=== PATIENT | male | born 1945 | race Caucasian/White ===

== ENCOUNTER 2017-07-16 20:00 | Emergency (ER) | payer MEDICARE, BC ==
[~2017-07-16] VITALS: Ht 167.6 cm; Wt 104.0 kg
[~2017-07-16 20:00] MED LIST: ACCU40TA PO; ACCU40TA10 PO; ALPR.5 PO; ASPI1TAB57 PO; HYDR-3366 PO; HYDR25TA5 PO; LABE100T2 PO; LOVA40TA PO; MULT-159 PO; OMEG12007 PO; PRED1SUS RIGHT EYE
[2017-07-16 20:09] VITALS: BP 140/63; PULSE 95; RESP 18; TEMP 100; O2SAT 94
--- NOTE | 2017-07-16 20:29 | PD ---
HPI Chief Complaint: Skin Problem Time Seen by Provider: 20:23 Travel History International Travel<30 days: No Contact w/Intl Traveler<30days: No Traveled to known affect area: No History of Present Illness HPI The patient is a 71-year-old male, [id number] diabetic, who is had a foot ulcer on his right foot for over 5 years. He states it healed up 3 months ago but in the last 3 days he has had redness, pain in the area and fever. He states he does not remember ever having osteomyelitis in that foot. His diabetes has been under fairly good control. PFSH Past Medical History Hx Anticoagulant Therapy: Yes (ASA 81 MG) Diabetes: Yes Diminished Hearing: No Hypertension: Yes Triglycerides - High: Yes Social History Alcohol Use: No Tobacco Use: No Substance Use: No Allergies-Medications (Allergen,Severity, Reaction): Coded Allergies: No Known Allergies (Unverified Adverse Reaction, Unknown, 07/16/17) Reported Meds & Prescriptions Reported Meds & Active Scripts Active Bactrim DS (Sulfamethoxazole-Trimethoprim) 800-160 Mg Tab 1 Tab PO BID Doxycycline Hyclate 100 Mg Cap 100 Mg PO BID Reported Pred Forte Opth 1% (Prednisolone Acetate Opth 1%) 1% Susp 1 Drop RIGHT EYE QID Accupril (Quinapril HCl) 40 Mg Tab 40 Mg PO DAILY Lovastatin 40 Mg Tab 40 Mg PO DAILY Labetalol (Labetalol HCl) 100 Mg Tab 100 Mg PO BID [place] (Hydrocodone-Acetaminophen) 10-325 Mg Tab 1 Tab PO DIRECTED PRN Hydrochlorothiazide 25 Mg Tab 25 Mg PO DAILY Aspirin 81 (Aspirin) 81 Mg Tabdr 81 Mg PO DAILY Xanax (Alprazolam) 0.5 Mg Tab 0.5 Mg PO DIRECTED PRN Review of Systems Except as stated in HPI: all other systems reviewed are Neg Physical Exam Narrative GENERAL: The patient is alert, oriented 3 and slight apparent distress with his right foot discomfort. His vital signs show temperature 100.0, pulse 95 and oximetry 94% but otherwise normal. SKIN: Focused skin assessment warm/dry. There is erythema involving the heel and up past the ankle medially. No red streak is noted. No fluctuance is noted. There is no evidence of abscess formation. No drainage is present from the heel. HEAD: Atraumatic. Normocephalic. EYES: Pupils equal and round. No scleral icterus. No injection or drainage. ENT: No nasal bleeding or discharge. Mucous membranes pink and moist. NECK: Trachea midline. No JVD. CARDIOVASCULAR: Regular rate and rhythm. No murmur appreciated. RESPIRATORY: No accessory muscle use. Clear to auscultation. Breath sounds equal bilaterally. GASTROINTESTINAL: Abdomen soft, non-tender, nondistended. Hepatic and splenic margins not palpable. MUSCULOSKELETAL: No obvious deformities. No clubbing. No cyanosis. No edema. NEUROLOGICAL: Awake and alert. No obvious cranial nerve deficits. Motor grossly within normal limits. Normal speech. PSYCHIATRIC: Appropriate mood and affect; insight and judgment normal. Data Data Last Documented VS Vital Signs Date Time Temp Pulse Resp B/P (MAP) Pulse Ox O2 Delivery O2 Flow Rate FiO2 07/16/17 20:09 100.0 95 18 140/63 (88) 94 Orders Orders Complete Blood Count With Diff (07/16/17 20:29) Comprehensive Metabolic Panel (07/16/17 20:29) Ct Foot W/O Contrast (07/16/17 ) Sulfamet-Trimeth Ds 800-160 Mg (Bactrim (07/16/17 22:30) Doxycycline (Vibramycin) (07/16/17 22:30) Labs Laboratory Tests Test 07/16/17 20:40 White Blood Count 11.2 TH/MM3 Red Blood Count 3.59 MIL/MM3 Hemoglobin 10.8 GM/DL Hematocrit 32.0 % Mean Corpuscular Volume 89.0 FL Mean Corpuscular Hemoglobin 30.1 PG Mean Corpuscular Hemoglobin Concent 33.8 % Red Cell Distribution Width 12.4 % Platelet Count 173 TH/MM3 Mean Platelet Volume 7.4 FL Neutrophils (%) (Auto) 87.8 % Lymphocytes (%) (Auto) 3.3 % Monocytes (%) (Auto) 8.2 % Eosinophils (%) (Auto) 0.1 % Basophils (%) (Auto) 0.6 % Neutrophils # (Auto) 9.8 TH/MM3 Lymphocytes # (Auto) 0.4 TH/MM3 Monocytes # (Auto) 0.9 TH/MM3 Eosinophils # (Auto) 0.0 TH/MM3 Basophils # (Auto) 0.1 TH/MM3 CBC Comment DIFF FINAL Differential Comment Blood Urea Nitrogen 66 MG/DL Creatinine 2.00 MG/DL Random Glucose 235 MG/DL Total Protein 7.1 GM/DL Albumin 3.3 GM/DL Calcium Level 8.7 MG/DL Alkaline Phosphatase 157 U/L Aspartate Amino Transf (AST/SGOT) 55 U/L Alanine Aminotransferase (ALT/SGPT) 64 U/L Total Bilirubin 0.6 MG/DL Sodium Level 134 MEQ/L Potassium Level 5.0 MEQ/L Chloride Level 102 MEQ/L Carbon Dioxide Level 22.2 MEQ/L Anion Gap 10 MEQ/L Estimat Glomerular Filtration Rate 33 ML/MIN MDM Medical Decision Making Medical Screen Exam Complete: Yes Emergency Medical Condition: Yes Medical Record Reviewed: Yes Interpretation(s) We could not use IV contrast on the CT of the foot because of the patient's renal insufficiency. Nevertheless, osteomyelitis is not identified on the CT. There is soft tissue swelling and chronic change including hypertrophic changes and well corticated cystic change noted. Also noted is surgical hardware in the hindfoot for fusion. The CBC shows a white count of 11,200 with a hemoglobin of 11 and hematocrit of 32 and 88% neutrophils. The complete metabolic profile shows a sodium of 134, BUN 66, creatinine 2.0 with glucose 235 , AST of 55 and alkaline phosphatase of 157 and albumen 3.3. Differential Diagnosis Cellulitis, osteomyelitis, abscess formation, lymphadenitis, infected ulcer Narrative Course The patient has an infected ulcer with cellulitis of the right foot. He will be given doxycycline and Bactrim DS. He needs to follow-up with the wound care clinic that he has been following up within the past. Additional Instructions: Follow-up with the wound care clinic this week. The antibiotics are both twice daily for 10 days. To improve circulation you should elevate the foot as much as possible above your heart. Med/Other Pt SpecificInfo: Prescription(s) given Scripts Sulfamethoxazole-Trimethoprim (Bactrim DS) 800-160 Mg Tab 1 TAB PO BID for Infection, #20 TAB 0 Refills Prov: Lan Horner MD 07/16/17 Doxycycline Hyclate (Doxycycline Hyclate) 100 Mg Cap 100 MG PO BID for Infection, #20 CAP 0 Refills Prov: Lan Horner MD 07/16/17 Disposition: 01 DISCHARGE HOME Condition: Stable Lan Horner MD Jul 16, 2017 20:28
[2017-07-16 21:00] LABS: CHLORIDE 102 MEQ/L (98-107); SODIUM (NA) 134 MEQ/L (136-145)
[2017-07-16 21:02] LABS: AUTOMATED NEUTROPHIL # 9.8 TH/MM3 (1.8-7.7); BASOPHIL # 0.1 TH/MM3 (0-0.2); BASOPHIL % 0.6 % (0.0-2.0); EOSINOPHIL % 0.1 % (0.0-4.0); LYMPH % 3.3 % (9.0-44.0); LYMPHOCYTE # 0.4 TH/MM3 (1.0-4.8); MEAN CORPUSCULAR HEMOGLOBIN 30.1 PG (27.0-34.0); MEAN CORPUSCULAR HGB CONC 33.8 % (32.0-36.0); MONO % 8.2 % (0.0-8.0); NEUT % 87.8 % (16.0-70.0); PLATELET COUNT 173 TH/MM3 (150-450); RED BLOOD COUNT 3.59 MIL/MM3 (4.50-5.90); RED CELL DISTRIBUTION WIDTH 12.4 % (11.6-17.2); WHITE BLOOD COUNT 11.2 TH/MM3 (4.0-11.0)
[2017-07-16 21:04] LABS: ANION GAP 10 MEQ/L (5-15); BICARBONATE 22.2 MEQ/L (21.0-32.0); BLOOD UREA NITROGEN 66 MG/DL (7-18)
[2017-07-16 21:05] LABS: HEMO FLAGS DIFF FINAL
[2017-07-16 21:07] LABS: ALT (GPT) 64 U/L (12-78); AST (GOT) 55 U/L (15-37); GLOMERULAR FILTRATION RATE 33 ML/MIN (>89)
[2017-07-16 21:09] LABS: TOTAL BILIRUBIN ADULT 0.6 MG/DL (0.2-1.0)
[2017-07-16 21:10] LABS: ALKALINE PHOSPHATASE 157 U/L (45-117)
--- NOTE | 2017-07-16 22:04 | RADRPT ---
EXAM DATE/TIME: 07/16/2017 21:19 [facility] COMPARISON: No previous studies available for comparison. INDICATIONS : Evaluate for osteomyelitis. Redness on heel of right foot. RADIATION DOSE: 6.13 CTDIvol (mGy) MEDICAL HISTORY : Hypertension. Diabetes mellitus type 2. SURGICAL HISTORY : Right ankle. ENCOUNTER: Initial ACUITY: 1 week PAIN SCALE: 2/10 LOCATION: Right calcaneus. TECHNIQUE: Volumetric scanning of the foot was performed. Using automated exposure control and adjustment of th e mA and/or kV according to patient size, radiation dose was kept as low as reasonably achievable to obtain optimal diagnostic quality images. DICOM format image data is available electronically for re view and comparison. FINDINGS: BONES: There are surgical screws seen through the hindfoot. There is also surgical clips for fusion at the h indfoot. These extend through the talus, calcaneus, navicular, and cuboid bones. There is cystic zamorano ge seen at the talus, calcaneus, distal fibula, distal tibia, cuneiform bones and the proximal aspect of the metatarsals. Much of this is well-corticated consistent with chronic change. Areas of acute b jamison destruction are not clearly identified on this CT examination. There is a chronic bony density se en inferior to the navicular bone likely related to hypertrophic change measuring 1.7 cm. There is hy pertrophic change seen throughout the hindfoot. JOINTS: There is narrowing of the subtalar joint talonavicular joint and calcaneocuboid joints which could fuller ggest some degree of soft tissue fusion. Bony bridging is not clearly seen. SOFT TISSUES: There is soft tissue swelling seen throughout the mid and hindfoot. This appears most prominent at th e medial mid foot. There is an area of ulceration at the posterior aspect of the heel with air in the soft tissues in the heel fat-pad. Vascular calcifications are seen. CONCLUSION: 1. Status post placement of surgical hardware in the hindfoot for fusion. 2. There is chronic change including hypertrophic changes and well-corticated cystic change. An area of acute bone destruction or periosteal reaction is not fully seen. 3. Soft tissue swelling. 4. Ulcer at the heel fat-pad. Elmer Tidwell MD on July 16, 2017 at 21:54 Board Certified Radiologist. This report was verified electronically.
[2017-07-16] MEDS ORDERED: BACT800T5 PO (22:28)
[2017-07-16] MEDS ORDERED: DOXY100C PO (22:28)
[2017-07-16] MEDS ORDERED: SULFAMETHOXAZOLE-TRIMETHOPRIM DS 800-160 MG TAB PO ONE (22:30)
[2017-07-16] MEDS ORDERED: DOXYCYCLINE HYCLATE 100 MG CAP PO ONE (22:30)
[2017-07-16 22:51] VITALS: BP 142/60; PULSE 78; RESP 18; O2SAT 97
== END 2017-07-16 22:54 | disposition home or self-care (01) ==
LOC: PHED 20:00
DX: L03.115 Cellulitis of right lower limb (principal); E11.8 Type 2 diabetes mellitus with unspecified complications; I10 Essential (primary) hypertension; Z79.01 Long term (current) use of anticoagulants
CPT/HCPCS: 73700; 80053; 85025; 99285

== ENCOUNTER 2017-08-23 09:03 | Inpatient (IN) | payer MEDICARE, BC ==
[~2017-08-23] VITALS: Ht 170.2 cm; Wt 103.5 kg
[2017-08-23] VITALS (9 sets, daily range): BP systolic 99–117; BP diastolic 49–56; PULSE 65–72; RESP 14–20; TEMP 96.8–98.7; O2SAT 18–99
[~2017-08-23 09:03] MED LIST changes: -ACCU40TA10 PO; +HYDR-3516 PO; -MULT-159 PO; -OMEG12007 PO; +WHEELCHAIR CUSH1 MI1; +WHEEMIS3
[2017-08-23] MEDS ORDERED: VANCOMYCIN INJ 1,000 MG in SODIUM CHLOR 0.9% 250 ML INJ 250 ML IV STA (10:19)
[2017-08-23] MEDS ORDERED: PIPERACIL-TAZO 4.5 GM PREMIX 100 ML IV STA (10:19)
--- NOTE | 2017-08-23 10:24 | PD ---
HPI Chief Complaint: Skin Problem Time Seen by Provider: 10:19 Travel History International Travel<30 days: No Contact w/Intl Traveler<30days: No Traveled to known affect area: No History of Present Illness HPI 71-year-old male patient with history of diabetes, poorly controlled, with chronic right foot wounds for which she has been following up with wound care Dr. Sparks, and recently had been on courses of 2 antibiotics for chronic foot ulcers which are appearing worse, and he is sent in by Dr. Sparks today for further treatment. He denies any recent fevers or any other issues. His states that the foot wounds are getting larger and draining fluid. Modifying Factors: None Associated Signs & Symptoms: Worsening right foot wound Risk Factors: Diabetic, chronic foot wound, failed outpatient therapy PFSH Past Medical History Hx Anticoagulant Therapy: Yes (ASA 81 MG) Diabetes: Yes Diminished Hearing: No Hypertension: Yes Immunizations Current: Yes Triglycerides - High: Yes Past Surgical History Other Surgery: Yes Social History Alcohol Use: No Tobacco Use: No Substance Use: No Allergies-Medications (Allergen,Severity, Reaction): Coded Allergies: succinylcholine (Verified Allergy, Unknown, 08/23/17) No Known Allergies (Unverified Adverse Reaction, Unknown, 08/23/17) Reported Meds & Prescriptions Reported Meds & Active Scripts Active Hydrocodone-Acetaminophen 5-325 mg Tab 1 Tab PO Q6H PRN Wheelchair Cushion (Device) 1 Mis Mis Ea .ROUTE DIRECTED Wheelchair (Device) 1 Mis Mis Ea .ROUTE DIRECTED Reported Fish Oil 1200 mg ([place]-3 Fatty Acids) 360 Mg-1,200 Mg Cap Multiple Vitamins (Multiple Vitamin) 1 Tab Tab Fluoxetine (Fluoxetine HCl) 10 Mg Tab 10 Mg PO DAILY Pred Forte Opth 1% (Prednisolone Acetate Opth 1%) 1% Susp 1 Drop RIGHT EYE QID Accupril (Quinapril HCl) 40 Mg Tab 40 Mg PO DAILY Lovastatin 40 Mg Tab 40 Mg PO DAILY Labetalol (Labetalol HCl) 100 Mg Tab 100 Mg PO BID [place] (Hydrocodone-Acetaminophen) 10-325 Mg Tab 1 Tab PO DIRECTED PRN Hydrochlorothiazide 25 Mg Tab 25 Mg PO DAILY Aspirin 81 (Aspirin) 81 Mg Tabdr 81 Mg PO DAILY Xanax (Alprazolam) 0.5 Mg Tab 0.5 Mg PO DIRECTED PRN Review of Systems Except as stated in HPI: all other systems reviewed are Neg Physical Exam Narrative GENERAL: Well-developed elderly white male patient currently in mild distress. Awake and oriented 3. SKIN: Focused skin assessment warm/dry. HEAD: Atraumatic. Normocephalic. EYES: Pupils equal and round. No scleral icterus. No injection or drainage. ENT: No nasal bleeding or discharge. Mucous membranes pink and moist. NECK: Trachea midline. No JVD. CARDIOVASCULAR: Regular rate and rhythm. No murmur appreciated. RESPIRATORY: No accessory muscle use. Clear to auscultation. Breath sounds equal bilaterally. GASTROINTESTINAL: Abdomen soft, non-tender, nondistended. Hepatic and splenic margins not palpable. MUSCULOSKELETAL: No obvious deformities. No clubbing. No cyanosis. There is significant pitting edema especially in the right leg. There is a 4 cm necrotic right heel ulcer posteriorly. There is a 1 cm heel dorsum ulcer with black eschar. NEUROLOGICAL: Awake and alert. No obvious cranial nerve deficits. Motor grossly within normal limits. Normal speech. PSYCHIATRIC: Appropriate mood and affect; insight and judgment normal. Data Data Last Documented VS Vital Signs Date Time Temp Pulse Resp B/P (MAP) Pulse Ox O2 Delivery O2 Flow Rate FiO2 08/23/17 11:01 69 16 117/56 (76) 99 Room Air 08/23/17 09:06 96.8 Orders Orders Sepsis Workup Initiated (08/23/17 ) Complete Blood Count With Diff (08/23/17 10:19) Comprehensive Metabolic Panel (08/23/17 10:19) Lactic Acid Sepsis Protocol (08/23/17 10:19) Blood Culture (08/23/17 10:19) Blood Glucose (08/23/17 10:19) Ecg Monitoring (08/23/17 10:19) Iv Access Insert/Monitor (08/23/17 10:19) Oximetry (08/23/17 10:19) Oxygen Administration (08/23/17 10:19) Piperacil-Tazo 4.5 Gm Premix (Zosyn 4.5 (08/23/17 10:19) Vancomycin Inj (Vancomycin Inj) (08/23/17 10:19) Foot, Limited (2vws) (08/23/17 10:19) Ondansetron Inj (Zofran Inj) (08/23/17 11:15) Morphine Inj (Morphine Inj) (08/23/17 12:00) Admit Order (Ed Use Only) (08/23/17 12:02) Labs Laboratory Tests Test 08/23/17 10:45 White Blood Count 20.4 TH/MM3 Red Blood Count 3.40 MIL/MM3 Hemoglobin 9.8 GM/DL Hematocrit 31.0 % Mean Corpuscular Volume 91.2 FL Mean Corpuscular Hemoglobin 28.9 PG Mean Corpuscular Hemoglobin Concent 31.7 % Red Cell Distribution Width 15.1 % Platelet Count 181 TH/MM3 Mean Platelet Volume 7.3 FL Neutrophils (%) (Auto) 96.3 % Lymphocytes (%) (Auto) 1.4 % Monocytes (%) (Auto) 2.0 % Eosinophils (%) (Auto) 0.1 % Basophils (%) (Auto) 0.2 % Neutrophils # (Auto) 19.7 TH/MM3 Lymphocytes # (Auto) 0.3 TH/MM3 Monocytes # (Auto) 0.4 TH/MM3 Eosinophils # (Auto) 0.0 TH/MM3 Basophils # (Auto) 0.0 TH/MM3 CBC Comment DIFF FINAL Differential Comment Blood Urea Nitrogen 128 MG/DL Creatinine 4.35 MG/DL Random Glucose 381 MG/DL Total Protein 7.6 GM/DL Albumin 2.4 GM/DL Calcium Level 8.7 MG/DL Alkaline Phosphatase 503 U/L Aspartate Amino Transf (AST/SGOT) 52 U/L Alanine Aminotransferase (ALT/SGPT) 73 U/L Total Bilirubin 0.6 MG/DL Sodium Level 127 MEQ/L Potassium Level 5.8 MEQ/L Chloride Level 98 MEQ/L Carbon Dioxide Level 13.3 MEQ/L Anion Gap 16 MEQ/L Estimat Glomerular Filtration Rate 14 ML/MIN Lactic Acid Level 1.5 mmol/L [facility] Medical Decision Making Medical Screen Exam Complete: Yes Emergency Medical Condition: Yes Medical Record Reviewed: Yes Interpretation(s) Laboratory Tests Test 08/23/17 10:45 White Blood Count 20.4 TH/MM3 (4.0-11.0) Red Blood Count 3.40 MIL/MM3 (4.50-5.90) Hemoglobin 9.8 GM/DL (13.0-17.0) Hematocrit 31.0 % (39.0-51.0) Mean Corpuscular Hemoglobin Concent 31.7 % (32.0-36.0) Neutrophils (%) (Auto) 96.3 % (16.0-70.0) Lymphocytes (%) (Auto) 1.4 % (9.0-44.0) Neutrophils # (Auto) 19.7 TH/MM3 (1.8-7.7) Lymphocytes # (Auto) 0.3 TH/MM3 (1.0-4.8) Blood Urea Nitrogen 128 MG/DL (7-18) Creatinine 4.35 MG/DL (0.60-1.30) Random Glucose 381 MG/DL (74-106) Albumin 2.4 GM/DL (3.4-5.0) Alkaline Phosphatase 503 U/L (45-117) Aspartate Amino Transf (AST/SGOT) 52 U/L (15-37) Sodium Level 127 MEQ/L (136-145) Potassium Level 5.8 MEQ/L (3.5-5.1) Carbon Dioxide Level 13.3 MEQ/L (21.0-32.0) Anion Gap 16 MEQ/L (5-15) Estimat Glomerular Filtration Rate 14 ML/MIN (>89) Differential Diagnosis Chronic foot ulcers versus osteomyelitis versus cellulitis Narrative Course Lab work shows significant leukocytosis. IV vancomycin and Zosyn was given up after blood cultures were drawn. Metabolic panel shows significant renal insufficiency as well as hyponatremia which could be secondary to pseudohyponatremia as well since his blood sugars are elevated. Patient will need treatment for his foot as well as poorly controlled diabetes. Case is discussed with family practice resident service for admission. Cases discussed with Dr. Sun who took a look at the x-ray which shows air within the soft tissues concerning for osteomyelitis. He states that the patient will need to go to the OR today. Keep n.p.o. Diagnosis Primary Impression: Diabetic foot ulcer Additional Impression: Osteomyelitis of right foot Admitting Information Admitting Physician Requests: it Lv Alonzo MD Aug 23, 2017 10:23
[2017-08-23 11:04] LABS: AUTOMATED NEUTROPHIL # 19.7 TH/MM3 (1.8-7.7); BASOPHIL % 0.2 % (0.0-2.0); EOSINOPHIL % 0.1 % (0.0-4.0); HEMOGLOBIN 9.8 GM/DL (13.0-17.0); LYMPH % 1.4 % (9.0-44.0); LYMPHOCYTE # 0.3 TH/MM3 (1.0-4.8); MEAN CELL VOLUME 91.2 FL (80.0-100.0); MEAN CORPUSCULAR HEMOGLOBIN 28.9 PG (27.0-34.0); MEAN CORPUSCULAR HGB CONC 31.7 % (32.0-36.0); MEAN PLATELET VOLUME 7.3 FL (7.0-11.0); MONOCYTE # 0.4 TH/MM3 (0-0.9); NEUT % 96.3 % (16.0-70.0); PLATELET COUNT 181 TH/MM3 (150-450); RED CELL DISTRIBUTION WIDTH 15.1 % (11.6-17.2); WHITE BLOOD COUNT 20.4 TH/MM3 (4.0-11.0)
[2017-08-23] MEDS ORDERED: ONDANSETRON HCL 4 MG/2 ML VIAL IV PUSH ONE (11:15)
[2017-08-23 11:19] LABS: ALBUMIN 2.4 GM/DL (3.4-5.0); AST (GOT) 52 U/L (15-37); BICARBONATE 13.3 MEQ/L (21.0-32.0); BLOOD UREA NITROGEN 128 MG/DL (7-18); CALCIUM 8.7 MG/DL (8.5-10.1); CHLORIDE 98 MEQ/L (98-107); CREATININE 4.35 MG/DL (0.60-1.30); GLOMERULAR FILTRATION RATE 14 ML/MIN (>89); GLUCOSE,RANDOM 381 MG/DL (74-106); SODIUM (NA) 127 MEQ/L (136-145)
[2017-08-23 11:20] LABS: ALT (GPT) 73 U/L (12-78)
[2017-08-23 11:22] LABS: ALKALINE PHOSPHATASE 503 U/L (45-117); TOTAL BILIRUBIN ADULT 0.6 MG/DL (0.2-1.0); TOTAL PROTEIN 7.6 GM/DL (6.4-8.2)
[2017-08-23] MEDS ORDERED: MORPHINE SULFATE 2 MG/ML INJ IV PUSH ONE (12:00)
[2017-08-23] MEDS ORDERED: PROPOFOL 200 MG/20 ML AMP IV ONE (12:00)
[2017-08-23] MEDS ORDERED: PHENYLEPH/NS 1000 MCG/10 ML SYR IV ONE (12:00)
[2017-08-23] MEDS ORDERED: ONDANSETRON HCL 4 MG/2 ML VIAL IV ONE (12:00)
[2017-08-23] MEDS ORDERED: LACTATED RINGER'S 1000 ML INJ 1,000 ML IV ONE (12:00)
[2017-08-23] MEDS ORDERED: ROCURONIUM INJ 50 MG/5 ML SYRINGE IV PUSH ONE (12:00)
[2017-08-23] MEDS ORDERED: LIDOCAINE HCL 1% PF 5 ML SYRINGE OTHER ONE (12:00)
[2017-08-23] MEDS ORDERED: STERILE WATER FOR INJECTION 20 ML VIAL IV ONE (12:00)
[2017-08-23] MEDS ORDERED: ePHEDrine/NS 25 MG/5 ML SYRINGE IV ONE (12:00)
[2017-08-23] MEDS ORDERED: SODIUM CHLORIDE 0.9% 20 ML VIAL IV ONE (12:00)
--- NOTE | 2017-08-23 12:17 | RADRPT ---
EXAM DATE/TIME: 08/23/2017 11:34 [facility] COMPARISON: No previous studies available for comparison. INDICATIONS : ulcer on plantar surface of right foot. MEDICAL HISTORY : diabetic SURGICAL HISTORY : right foot surgery ENCOUNTER: Initial ACUITY: 1 week PAIN SCORE: 0/10 LOCATION: Right foot FINDINGS: Two view right foot demonstrate there has been previous extensive surgery to the hind foot including a [place] thread screw across the calcaneus. The talus may be surgically removed. There is extensive air both within the subcutaneous tissues around the ankle concerning for infection. There is marked dorsal soft tissue swelling. CONCLUSION: Concerning soft tissue air and swelling around the deformed ankle, possible osteomyelitis. Trever Deutsch MD on August 23, 2017 at 11:44 Board Certified Radiologist. This report was verified electronically.
[2017-08-23] MEDS ORDERED: MULTTAB12 (12:39)
[2017-08-23] MEDS ORDERED: FISH1200 (12:39)
[2017-08-23] MEDS ORDERED: FLUO10TA PO (12:39)
[2017-08-23] MEDS ORDERED: SODIUM CHLORIDE 0.9% FLUSH 10 ML FLUSH IV FLUSH PRN ×2 (13:00→16:45)
--- NOTE | 2017-08-23 13:46 | HHI.HP ---
[facility] Service Family Medicine Primary Care Physician Migue Jeter M.D. Admission Diagnosis right foot diabetic ulcer/failed outpatient therapy/sepsis Diagnoses: International Travel<30 Days: No Contact w/Intl Traveler<30days: No Known Affected Area: No History of Present Illness Patient is a 71-year-old male with a past medical history of poorly controlled diabetes with chronic foot ulcers, hypertension, chronic kidney disease, and hyperlipidemia that presents to the [place] ED with a chief complaint of a worsened foot ulcer. He has been following up at the wound care clinic with Dr. Sparks who has been managing his ulcers. Patient states that he had an ulcer on his right foot that healed and then " blew up." He went to the ED on July 15 and was given 2 antibiotics which he completed. The ulcer was doing better until last Monday when he found a blister and then it started hurting again. Today, he went to see Dr. Sparks who asked him to come to the ED. Dr. Sparks also found another abscess underneath his foot. For the last couple of days, he has not been able to eat all keep anything down. He has also been very weak. (Mary Lou Zhu MD R2) Review of Systems Constitutional: COMPLAINS OF: Fatigue, DENIES: Fever, Chills, Dizziness Eyes: DENIES: Blurred vision, Eye pain Ears, nose, mouth, throat: DENIES: Hearing loss, Nasal discharge, Throat pain, Ear Pain Respiratory: DENIES: Cough Cardiovascular: DENIES: Chest pain Gastrointestinal: COMPLAINS OF: Nausea, Vomiting, DENIES: Abdominal pain, Constipation, Diarrhea (last bm 2 days ago) Genitourinary: DENIES: Dysuria Musculoskeletal: DENIES: Back pain, Neck pain Integumentary: DENIES: Pruritus, Rash Neurologic: DENIES: Headache Psychiatric: COMPLAINS OF: Depression, DENIES: Confusion, Suicidal Ideation, Homicidal Ideation (Mary Lou Zhu MD R2) Past Family Social History Past Medical History Diabetes type 2, he is not currently on any diabetic medications Hypertension Hyperlipidemia Chronic kidney disease Anxiety/depression Past Surgical History Right corneal transplant Reported Medications Reported Meds & Active Scripts Active Hydrocodone-Acetaminophen 5-325 mg Tab 1 Tab PO Q6H PRN Wheelchair Cushion (Device) 1 Mis Mis Ea .ROUTE DIRECTED Wheelchair (Device) 1 Mis Mis Ea .ROUTE DIRECTED Reported Fish Oil 1200 mg ([place]-3 Fatty Acids) 360 Mg-1,200 Mg Cap Multiple Vitamins (Multiple Vitamin) 1 Tab Tab Fluoxetine (Fluoxetine HCl) 10 Mg Tab 10 Mg PO DAILY Pred Forte Opth 1% (Prednisolone Acetate Opth 1%) 1% Susp 1 Drop RIGHT EYE QID Lovastatin 40 Mg Tab 40 Mg PO DAILY Labetalol (Labetalol HCl) 100 Mg Tab 100 Mg PO BID [place] (Hydrocodone-Acetaminophen) 10-325 Mg Tab 1 Tab PO DIRECTED PRN Hydrochlorothiazide 25 Mg Tab 25 Mg PO DAILY Xanax (Alprazolam) 0.5 Mg Tab 0.5 Mg PO DIRECTED PRN (Mary Lou Zhu MD R2) Allergies: Coded Allergies: succinylcholine (Verified Allergy, Unknown, 08/23/17) No Known Allergies (Unverified Adverse Reaction, Unknown, 08/23/17) Family History Family member had an DE Social History Does not drink, smoke or use illicit drugs. Last smoked 40 years ago. Lives with ex- (Mary Lou Zhu MD R2) Physical Exam Vital Signs Vital Signs Date Time Temp Pulse Resp B/P (MAP) Pulse Ox O2 Delivery O2 Flow Rate FiO2 08/23/17 13:12 97 21 08/23/17 13:01 71 19 104/51 (68) 99 Room Air 08/23/17 11:01 69 16 117/56 (76) 99 Room Air 08/23/17 11:01 99 Room Air 08/23/17 10:21 18 08/23/17 09:06 96.8 65 14 105/52 (69) 99 Physical Exam GENERAL: This is a well-developed patient, obese patient in no apparent distress. SKIN: No rashes, ecchymoses or lesions. Cool and dry. No sacral ulcers. Other skin findings described in MSK exam below HEAD: Atraumatic. Normocephalic. No temporal or scalp tenderness. EYES: Pupils equal round and reactive. Extraocular motions intact. No scleral icterus. No injection or drainage. ENT: Nose without bleeding, purulent drainage or septal hematoma. Throat without erythema, tonsillar hypertrophy or exudate. Uvula midline. Airway patent. Upper dentures present NECK: Trachea midline. No JVD or lymphadenopathy. Supple, nontender, no meningeal signs. CARDIOVASCULAR: Regular rate and rhythm without murmurs, gallops, or rubs. RESPIRATORY: Clear to auscultation. Breath sounds equal bilaterally. No wheezes , rales, or rhonchi. GASTROINTESTINAL: Abdomen soft, non-tender, nondistended. No hepato-splenomegaly , or palpable masses. No guarding. MUSCULOSKELETAL: Decreased sensation in both feet and legs bilaterally. RIGHT FOOT: Palpable DP pulse on the left but not on the right. Right foot larger than left due to swelling, erythema, ankle appears deformed. 7 cm square gangrenous lesion on the right heel draining foul-smelling fluid. Second smaller plantar ulcer on the plantar surface of the right foot. Surrounding swelling and erythema, deformed appearing ankle due to swelling. Venous stasis dermatitis bilaterally. Brawny edema of right foot. Dry skin on feet bilaterally. Disfigured first two toenails bilaterally. LEFT FOOT: Stage I skin breakdown on heel of the left foot. Callus on big toe of left foot. NEUROLOGICAL: Awake and alert. Cranial nerves II through XII intact. Normal speech. Laboratory Laboratory Tests Test 08/23/17 10:45 White Blood Count 20.4 Red Blood Count 3.40 Hemoglobin 9.8 Hematocrit 31.0 Mean Corpuscular Volume 91.2 Mean Corpuscular Hemoglobin 28.9 Mean Corpuscular Hemoglobin Concent 31.7 Red Cell Distribution Width 15.1 Platelet Count 181 Mean Platelet Volume 7.3 Neutrophils (%) (Auto) 96.3 Lymphocytes (%) (Auto) 1.4 Monocytes (%) (Auto) 2.0 Eosinophils (%) (Auto) 0.1 Basophils (%) (Auto) 0.2 Neutrophils # (Auto) 19.7 Lymphocytes # (Auto) 0.3 Monocytes # (Auto) 0.4 Eosinophils # (Auto) 0.0 Basophils # (Auto) 0.0 CBC Comment DIFF FINAL Differential Comment Blood Urea Nitrogen 128 Creatinine 4.35 Random Glucose 381 Total Protein 7.6 Albumin 2.4 Calcium Level 8.7 Alkaline Phosphatase 503 Aspartate Amino Transf (AST/SGOT) 52 Alanine Aminotransferase (ALT/SGPT) 73 Total Bilirubin 0.6 Sodium Level 127 Potassium Level 5.8 Chloride Level 98 Carbon Dioxide Level 13.3 Anion Gap 16 Estimat Glomerular Filtration Rate 14 Lactic Acid Level 1.5 Date/Time Source Procedure Growth Status 08/23/17 10:45 Blood Peripheral Aerobic Blood Culture Pending Received 08/23/17 10:45 Blood Peripheral Anaerobic Blood Culture Pending Received (Mary Lou Zhu MD R2) Result Diagram: 08/23/17 1045 08/23/17 1045 Imaging Last Impressions Foot X-Ray 08/23/17 1019 Signed Impressions: Service Date/Time: Wednesday, August 23, 2017 11:34 - CONCLUSION: Concerning soft tissue air and swelling around the deformed ankle, possible osteomyelitis. Trever Deutsch MD Course In the ED, a sepsis workup was initiated. Patient received one dose of Zosyn 4.5 g IV and vancomycin IV. Foot x-ray was performed that was concerning for osteomyelitis. Podiatry was consulted who decided to take the patient to the OR for emergent incision and drainage. (Mary Lou Zhu MD R2) Caprini VTE Risk Assessment Caprini VTE Risk Assessment: Mod/High Risk (score >= 2) VTE Pharm Contraindication: High risk for bleeding Caprini Risk Assessment Model Point Value = 1 Point Value = 2 Point Value = 3 Point Value = 5 Age 41-60 Minor surgery BMI > 25 kg/m2 Swollen legs Varicose veins or History of unexplained or recurrent spontaneous Oral contraceptives or hormone replacement Sepsis (< 1 month) Serious lung disease, including pneumonia (< 1 month) Abnormal pulmonary function Acute myocardial infarction Congestive heart failure (< 1 month) History of inflammatory bowel disease Medical patient at bed rest Age 61-74 Arthroscopic surgery Major open surgery (> 45 min) Laparoscopic surgery (> 45 min) Malignancy Confined to bed (> 72 hours) Immobilizing plaster cast Central venous access Age >= 75 History of VTE Family history of VTE Factor V Leiden Prothrombin [id number] Lupus anticoagulant Anticardiolipin antibodies Elevated serum homocysteine Heparin-induced thrombocytopenia Other congenital or acquired thrombophilia Stroke (< 1 month) Elective arthroplasty Hip, pelvis, or leg fracture Acute spinal cord injury (< 1 month) Prophylaxis Regimen Total Risk Factor Score Risk Level Prophylaxis Regimen 0-1 Low Early ambulation 2 Moderate Order ONE of the following: *Sequential Compression Device (SCD) *Heparin 5000 units SQ BID 3-4 Higher Order ONE of the following medications: *Heparin 5000 units SQ TID *Enoxaparin/Lovenox 40 mg SQ daily (WT < 150 kg, CrCl > 30 mL/min) *Enoxaparin/Lovenox 30 mg SQ daily (WT < 150 kg, CrCl > 10-29 mL/min) *Enoxaparin/Lovenox 30 mg SQ BID (WT < 150 kg, CrCl > 30 mL/min) AND/OR *Sequential Compression Device (SCD) 5 or more Highest Order ONE of the following medications: *Heparin 5000 units SQ TID (Preferred with Epidurals) *Enoxaparin/Lovenox 40 mg SQ daily (WT < 150 kg, CrCl > 30 mL/min) *Enoxaparin/Lovenox 30 mg SQ daily (WT < 150 kg, CrCl > 10-29 mL/min) *Enoxaparin/Lovenox 30 mg SQ BID (WT < 150 kg, CrCl > 30 mL/min) AND *Sequential Compression Device (SCD) (Mary Lou Zhu MD R2) Assessment and Plan Assessment and Plan 71 year old male with past medical history of poorly controlled diabetes presents with severe sepsis from an infected diabetic foot ulcer which is concerning for necrotizing infection and osteomyelitis. He will be admitted for surgical management of the foot ulcer and treatment with fluids and antibiotics for severe sepsis. Podiatry has been consulted and patient is scheduled for the OR for incision and drainage today 08/23/17. Code Status Full code Discussed Condition With Will discuss with Dr. Frye (Mary Lou Zhu MD R2) Attending Attestation The patient has been seen and examined. The chart and all resident notes have been reviewed. I agree that inpatient care is appropriate and that a two midnight stay is expected for the reasons documented in the resident history and physical. I have discussed this with the resident and certify the resident s order for inpatient admission. Patient seen and examined with the resident team at 8 am today. Case reviewed and discussed Please refer to resident H&P for further details regarding HPI, ROS, PMH, SurgHx , FH and SocHx. In summary, patient is a 71yoM with a chronic foot wound He had been well known to podiatry and Dr. Sparks in the wound clinic Patient was sent to the ED after notable worsening in the foot He was admitted yesterday and taken to the OR by podiatry with subsequent admission to the ICU Patient had declined amputation at that time despite medical recommendations and discussion regarding the risk of not pursuing amputation. This am, he is seen in the ICU, ex- at the bedside. Patient and the medical team had a very lengthy discussion regarding amputation and the risk if patient did not choose to go this route. He repeated this information back to us with his ex- present and understood. GENERAL: Elderly male resting in bed SKIN: Warm and dry. Mild pallor. No rashes HEAD: Normocephalic. AT EYES: No scleral icterus. No injection or drainage. ENT: OP clear. MM slightly dry. NC in place NECK: Supple, trachea midline. No JVD or lymphadenopathy. CARDIOVASCULAR: Regular rate and rhythm without audible murmurs, gallops, or rubs. RESPIRATORY: Breath sounds equal and clear bilaterally. No accessory muscle use. GASTROINTESTINAL: Abdomen soft, non-tender, nondistended. Hypoactive BS. No rebound, no guarding. MUSCULOSKELETAL: No cyanosis. R LE in dressing post-op. Able to wiggle toes. NV intact distal to site. BACK: Nontender without obvious deformity. No CVA tenderness. NEURO: Awake and alert. CN grossly intact. Oriented. A/P: 71yoM admitted with: Severe sepsis due to OM, gas gangrene/necrotizing fascitis R foot (POA) DM, poorly controlled Hypertension Hyperlipidemia Chronic kidney disease, with acute renal dysfunction Anxiety/depression Empiric antibiotic therapy Critical care medicine is consulted Infectious disease has been consulted Podiatry has been consulted Vascular surgery has been consulted Patient on insulin gtt Pain control Palliative care consult to assist with determination of patient's goals Monitor VS closely Patient extensively counseled regarding risks/benefits. He and his ex- stated their understanding. At this point in time, patient desires to wait on surgery and think about it more. Patient seen and examined. Case reviewed and discussed Agree with plan of care as discussed with me and documented in the resident note. (Tiffanie Frye MD) Problem List: (1) Severe sepsis ICD Codes: A41.9 - Sepsis, unspecified organism; R65.20 - Severe sepsis without septic shock Plan: -Met severe sepsis criteria on admission with temperature of 96.8F and elevated WBC of 20.4, and creatinine 4.35 (baseline 2.0 in July 2017) -Sepsis workup initiated: Lactic acid 1.5, urinalysis shows moderate blood, 7 WBC, 30 protein, 150 glucose, 55 RBC, with cath-culture indicated -Blood cultures pending, expect wound cultures from debrided specimen -Vancomycin IV, pharmacy to assist with dosing, Clindamycin 900 mg every 8 hours IV, Zosyn 2.25 mg every 6 hours IV -NS boluses as needed, maintenance fluids -Hydraulic Punch Press Operator on board -appreciate assistance with management (2) Metabolic acidosis ICD Codes: E87.2 - Acidosis Plan: -Multiple electrolyte derangements including sodium of 127, potassium 5.8 , anion gap of 16, glucose 381 -Beta hydroxybutyrate elevated at 0.99 -Lactic WNL at acid 1.5 -Managed with fluids, currently on insulin and bicarbonate drips per critical care (3) Osteomyelitis of right foot ICD Codes: M86.9 - Osteomyelitis, unspecified Status: Acute Plan: -Going to the OR for emergency I&D, possible amputation -Podiatry on board -Antibiotics and fluids as above (4) Acute kidney injury superimposed on CKD ICD Codes: N17.9 - Acute kidney failure, unspecified; N18.9 - Chronic kidney disease, unspecified Plan: -Creatinine 4.35, BUN 128 on admission, GFR 14 -Creatinine was 2 in July 2017 and 1.33 in 2012 -Suspect acute on chronic kidney injury -Fluids as above -Continue to monitor -Consider renal ultrasound and nephrology consult if worsens (5) Diabetes mellitus ICD Codes: E11.9 - Type 2 diabetes mellitus without complications Plan: -Poorly controlled, patient was not on any antidiabetic medications -Will check A1c, lipids -Currently on insulin drip -Plan to transition to long-acting insulin with sliding scale once hyperglycemia improves (6) Chronic medical problems Plan: Hypertension - currently hypotensive, resume hydrochlorothiazide once improved, hold lisinopril due to acute on chronic CKD Hyperlipidemia - continue lovastatin 40 mg by mouth daily Depression/anxiety - continue fluoxetine 10 mg by mouth daily and alprazolam 0.5 mg by mouth (7) FEN/DVT PPX/GI PPX/Nursing Orders Plan: -Fluids per critical care -Monitor electrolytes and replete as needed -Clear liquid diet -Pain management with [place] and morphine IV -Zofran for nausea/vomiting as needed -Neuro checks, vitals 4 hours, bedrest, monitor I's and O's, continuous cardiac telemetry (Eko,Mary Lou Ahuja MD R2) Physician Certification 2 Midnight Certification Type: Admission for Inpatient Services Order for Inpatient Services The services are ordered in accordance with Medicare regulations or non- Medicare payer requirements, as applicable. In the case of services not specified as inpatient-only, they are appropriately provided as inpatient services in accordance with the 2-midnight benchmark. Estimated LOS (days): 5 days is the estimated time the patient will need to remain in the hospital, assuming treatment plan goals are met and no additional complications. Post-Hospital Plan: Not yet determined (Mary Lou Zuh MD R2) Problem Qualifiers (1) Diabetes mellitus: Mary Lou Zhu MD R2 Aug 23, 2017 13:46 Tiffanie Frye MD Aug 24, 2017 15:26
[2017-08-23] MEDS ORDERED: ACETAMINOPHEN 1000 MG/100 ML 100 ML IV ONE (13:58)
[2017-08-23] MEDS ORDERED: MIDAZOLAM HCL 2 MG/2 ML VIAL ONE (13:59)
[2017-08-23] MEDS ORDERED: FAMOTIDINE 20 MG/2 ML VIAL ONE (13:59)
[2017-08-23] MEDS ORDERED: ALPRAZolam 0.5 MG TAB PO PRN (14:00)
[2017-08-23] MEDS ORDERED: ACETAMINOPHEN/HYDROcodone 325 MG/5 MG TAB PO PRN ×2 (14:00→17:15)
[2017-08-23] MEDS ORDERED: BUPIVACAINE HCL PF 0.25% 30 ML VIAL ONE (14:23)
--- NOTE | 2017-08-23 14:59 | PD.POD ---
Past Med/Surg/Social History Past Medical History HEENT: REPORTS HX OF: Other HEENT history Endocrine: REPORTS HX OF: Diabetes mellitus Cardiovascular: REPORTS HX OF: Hypertension Musculoskeletal: REPORTS HX OF: Fractures (right elbow and foot) Disabilities: REPORTS HX OF: Vision deficit Past Surgical History HEENT: REPORTS HX OF: Other eye surgery (cornea transplant) Musculoskeletal: REPORTS HX OF: Other musculoskeletal srg (right foot and elbow ) Social History Smoking Status: Former Smoker Objective Vital Signs Vital Signs Date Time Temp Pulse Resp B/P (MAP) Pulse Ox O2 Delivery O2 Flow Rate FiO2 08/23/17 14:14 67 15 99/51 (67) 98 08/23/17 13:12 97 21 08/23/17 13:01 71 19 104/51 (68) 99 Room Air 08/23/17 11:01 69 16 117/56 (76) 99 Room Air 08/23/17 11:01 99 Room Air 08/23/17 10:21 18 08/23/17 09:06 96.8 65 14 105/52 (69) 99 Coded Allergies: succinylcholine (Verified Allergy, Unknown, 08/23/17) No Known Allergies (Unverified Adverse Reaction, Unknown, 08/23/17) Assessment & Plan A/P Right foot ankle leg infection, gas gangrene, infected hardware. FULL CONSULT DICTATED. Urgent incision drainage right foot ankle and leg, now, will likely need right BKA, reviewed risks and benefits. Refusing BKA at this point reviewed case with vascular, formal consult placed. Des Sun DPM Aug 23, 2017 14:59
[2017-08-23] MEDS ORDERED: METOPROLOL TARTRATE 25 MG TAB PO PRN (15:00)
[2017-08-23] MEDS ORDERED: SODIUM CHLORID 0.9% 500 ML IV PRN (15:00)
[2017-08-23] MEDS ORDERED: POVIDONE IODINE 5% (ANTISEPSIS KIT) 4 APPLICATIONS EACH NARE PRN (15:00)
[2017-08-23] MEDS ORDERED: CHLORHEXIDINE GLUCONATE 2 % 1 PACK (2 CLOTHS) TOPICAL PRN (15:00)
[2017-08-23] MEDS ORDERED: LACTATED RINGER'S 1000 ML IV PRN (15:00)
[2017-08-23] MEDS ORDERED: KETAMINE HCL 500 MG/5 ML VIAL ONE (15:58)
[2017-08-23] MEDS ORDERED: SODIUM CHLOR 0.9% 1000 ML INJ 1,000 ML IV SCH (16:38)
[2017-08-23] MEDS ORDERED: Vancomycin Consult Pharmacy 1 EA OTHER SCH (16:45)
[2017-08-23] MEDS ORDERED: SUGAMMADEX SODIUM 200 MG/2 ML VIAL IV PUSH ONE (16:50)
[2017-08-23] MEDS ORDERED: PIPERACIL-TAZO 4.5 GM PREMIX 100 ML IV SCH (17:00)
[2017-08-23] MEDS ORDERED: DEXTROSE 50% IN WATER 50 ML VIAL(D50) IV PUSH PRN ×2 (17:15→17:45)
[2017-08-23] MEDS ORDERED: GLUCAGON 1 MG/ML VIAL OTHER PRN (17:15)
--- NOTE | 2017-08-23 17:23 | HHI.PR ---
Immediate Post Op Note Procedure Date: Aug 23, 2017 Pre Op Diagnosis: Right foot ankle distal leg gas gangrene Post Op Diagnosis: same Surgeon: Des Brooks Medical Resident(s): scrub Procedure: Right foot ankle leg incision drainage debridement Findings: Severe necrosis and deep infection/gas within ankle Complications: Anesthesia recommended ICU consult in PACU Specimen(s) removed: bone and soft tissue for path and micro Estimated blood loss: 400mL Anesthesia: General Drains: Other IVF Patient to: [facility] Patient Condition: Poor Des Brooks DPM Aug 23, 2017 17:23
[2017-08-23] MEDS ORDERED: *morphine SULFATE 10 MG/ML PERIprocedure ONLY ONE (17:40)
[2017-08-23] MEDS ORDERED: SODIUM CHLOR 0.9% 1000 ML INJ 1,000 ML IV ONE (17:45)
[2017-08-23] MEDS ORDERED: MISC INFORMATION OTHER ONE (17:45)
[2017-08-23] MEDS: prednisoLONE ACETATE 1% OPHT SUSP 5 ML BTL RIGHT EYE SCH ×2 (18:00→21:00)
[2017-08-23] MEDS ORDERED: *morphine SULFATE 4 MG/ML PERIprocedure ONLY ONE (18:14)
[2017-08-23] MEDS ORDERED: DO NOT ADM ANY ANTICOAGULANT DRUGS PRN (18:15)
[2017-08-23 18:18] LABS: HEMATOCRIT 26.6 % (39.0-51.0); HEMOGLOBIN 8.8 GM/DL (13.0-17.0); MEAN CELL VOLUME 90.7 FL (80.0-100.0); MEAN CORPUSCULAR HEMOGLOBIN 30.1 PG (27.0-34.0); MEAN CORPUSCULAR HGB CONC 33.2 % (32.0-36.0); MEAN PLATELET VOLUME 7.9 FL (7.0-11.0); PLATELET COUNT 160 TH/MM3 (150-450); RED BLOOD COUNT 2.93 MIL/MM3 (4.50-5.90); WHITE BLOOD COUNT 16.9 TH/MM3 (4.0-11.0)
[2017-08-23] MEDS: PIPERACIL-TAZO 2.25 GM PREMIX 50 ML IV SCH ×2 (18:20→23:26)
[2017-08-23] MEDS: SODIUM BICARBONATE 8.4% INJ 150 MEQ in WATER STERILE FOR INJ 850 ML IV SCH (18:25)
[2017-08-23 18:33] LABS: AMORPHOUS SEDIMENT, URINE RARE; BACTERIA, URINE OCC /hpf; BILIRUBIN, URINE NEG (NEG); BLOOD, URINE MOD (NEG); GLUCOSE,URINE 150 mg/dL (NEG); KETONE, URINE NEG (NEG); NITRITE,URINE NEG (NEG); URINE COLOR YELLOW (YELLW/STRAW); URINE LEUKOCYTE ESTERASE NEG (NEG)
[2017-08-23 18:38] LABS: ALT (GPT) 59 U/L (12-78); CHOLESTEROL 58 MG/DL (120-200); PHOSPHORUS 4.9 MG/DL (2.5-4.9); TRIGLYCERIDES 140 MG/DL (42-150)
[2017-08-23 18:41] LABS: ALKALINE PHOSPHATASE 379 U/L (45-117); INTERNATIONAL NORMALIZED RATIO 1.3 RATIO; PROTHROMBIN TIME - PATIENT 13.2 SEC (9.8-11.6); TOTAL BILIRUBIN ADULT 0.5 MG/DL (0.2-1.0); TOTAL PROTEIN 6.3 GM/DL (6.4-8.2)
[2017-08-23] MEDS: CLINDAMYCIN INJ 900 MG in SODIUM CHLORIDE 0.9% INJ 100 ML IV SCH (18:42)
[2017-08-23 18:44] LABS: ALBUMIN 1.9 GM/DL (3.4-5.0); AST (GOT) 37 U/L (15-37); BICARBONATE 14.8 MEQ/L (21.0-32.0); BLOOD UREA NITROGEN 132 MG/DL (7-18); CALCIUM 7.9 MG/DL (8.5-10.1); CHLORIDE 102 MEQ/L (98-107); CREATININE 4.02 MG/DL (0.60-1.30); GLOMERULAR FILTRATION RATE 15 ML/MIN (>89); GLUCOSE,RANDOM 325 MG/DL (74-106); MAGNESIUM 1.7 MG/DL (1.5-2.5); SODIUM (NA) 131 MEQ/L (136-145)
[2017-08-23 18:47] LABS: CHOLESTEROL/ HDL RATIO 2.63 RATIO; LDL CHOLESTEROL 8 MG/DL (0-99)
[2017-08-23] MEDS ORDERED: INSULIN REGULAR (IV INFUSION) 100 UNITS in SODIUM CHLORIDE 0.9% INJ 99 ML IV PRN (19:00)
[2017-08-23] MEDS ORDERED: VANCOMYCIN INJ 1,500 MG in SODIUM CHLORID 0.9% 500 ML INJ 500 ML IV ONE (20:00)
[2017-08-23] MEDS ORDERED: LABETALOL HCL 100 MG TAB PO SCH (21:00)
[2017-08-23] MEDS ORDERED: SODIUM CHLORIDE 0.9% FLUSH 10 ML FLUSH IV FLUSH SCH (21:00)
[2017-08-23] MEDS ORDERED: VANCOMYCIN INJ 1,000 MG in SODIUM CHLOR 0.9% 250 ML INJ 250 ML IV SCH (21:00)
[2017-08-23] MEDS: SODIUM CHLORIDE 0.9% FLUSH 10 ML FLUSH IV FLUSH SCH (21:00)
[2017-08-23] MEDS ORDERED: INSULIN ASPART SUPPLEMENTAL SCALE SQ SCH (21:00)
--- NOTE | 2017-08-23 21:12 | PD.CONS ---
HPI Service Critical Care Medicine Consult Requested By Primary Care Physician Migue Jeter M.D. History of Present Illness 71-year-old male with a past medical history of poorly controlled diabetes with chronic foot ulcers, hypertension, chronic kidney disease, and hyperlipidemia presents with a complaint of a worsened foot ulcer. He has been following up at the wound care clinic with Dr. Sparks who has been managing his ulcers. The ulcer was doing better until last Monday when he found a blister and then it started hurting again. Today, he went to see Dr. Sparks who asked him to come to the ED. Dr. Sparks also found another abscess underneath his foot. He was taken to operating room for Right foot ankle leg incision drainage debridement by Dr. Sun with recommendations of amputation, however patient's refused and wants to think about it overnight. Review of Systems Constitutional: DENIES: Diaphoretic episodes, Fatigue, Fever, Weight gain, Weight loss, Chills, Dizziness, Change in appetite, Night Sweats Endocrine: DENIES: Heat/cold intolerance, Polydipsia, Polyuria, Polyphagia Eyes: DENIES: Blurred vision, Diplopia, Eye inflammation, Eye pain, Vision loss , Photosensitivity, Double Vision Ears, nose, mouth, throat: DENIES: Tinnitus, Hearing loss, Vertigo, Nasal discharge, Oral lesions, Throat pain, Hoarseness, Ear Pain, Running Nose, Epistaxis, Sinus Pain, Toothache, Odynophagia Respiratory: DENIES: Apneas, Cough, Snoring, Wheezing, Hemoptysis, Sputum production, Shortness of breath Cardiovascular: DENIES: Chest pain, Palpitations, Syncope, Dyspnea on Exertion , PND, Lower Extremity Edema, Orthopnea, Claudication Gastrointestinal: DENIES: Abdominal pain, Black stools, Bloody stools, Constipation, Diarrhea, Nausea, Vomiting, Difficulty Swallowing, Anorexia Genitourinary: DENIES: Sexual dysfunction, Urinary frequency, Urinary incontinence, Urgency, Hematuria, Dysuria, Nocturia, Penile Discharge, Testicular Pain, Testicular Swelling Musculoskeletal: COMPLAINS OF: Joint pain, Muscle aches Integumentary: COMPLAINS OF: Abnormal pigmentation Hematologic/lymphatic: DENIES: Bruising, Lymphadenopathy Immunologic/allergic: DENIES: Eczema, Urticaria Neurologic: COMPLAINS OF: Abnormal gait, Poor Balance Psychiatric: DENIES: Anxiety, Confusion, Mood changes, Depression, Hallucinations, Agitation, Suicidal Ideation, Homicidal Ideation, Delusions Past Family Social History Allergies: Coded Allergies: succinylcholine (Verified Allergy, Unknown, 08/23/17) No Known Allergies (Unverified Adverse Reaction, Unknown, 08/23/17) Past Medical History Diabetes type 2, he is not currently on any diabetic medications Hypertension Hyperlipidemia Chronic kidney disease Anxiety/depression Past Surgical History Right corneal transplant Reported Medications Reported Meds & Active Scripts Active Hydrocodone-Acetaminophen 5-325 mg Tab 1 Tab PO Q6H PRN Wheelchair Cushion (Device) 1 Mis Mis Ea .ROUTE DIRECTED Wheelchair (Device) 1 Mis Mis Ea .ROUTE DIRECTED Reported Fish Oil 1200 mg ([place]-3 Fatty Acids) 360 Mg-1,200 Mg Cap Multiple Vitamins (Multiple Vitamin) 1 Tab Tab Fluoxetine (Fluoxetine HCl) 10 Mg Tab 10 Mg PO DAILY Pred Forte Opth 1% (Prednisolone Acetate Opth 1%) 1% Susp 1 Drop RIGHT EYE QID Lovastatin 40 Mg Tab 40 Mg PO DAILY Labetalol (Labetalol HCl) 100 Mg Tab 100 Mg PO BID [place] (Hydrocodone-Acetaminophen) 10-325 Mg Tab 1 Tab PO DIRECTED PRN Hydrochlorothiazide 25 Mg Tab 25 Mg PO DAILY Xanax (Alprazolam) 0.5 Mg Tab 0.5 Mg PO DIRECTED PRN Active Ordered Medications Current Medications Medications (Trade) Dose Ordered Sig/Shweta Route PRN Reason Start Time Stop Time Status Last Admin Dose Admin Alprazolam (Xanax) 0.5 mg DAILY PRN PO ANXIETY 08/23/17 14:00 Fluoxetine HCl (PROzac) 10 mg DAILY PO 08/24/17 09:00 Hydrochlorothiazide (Hydrodiuril) 25 mg DAILY PO 08/24/17 09:00 Pravastatin Sodium (Pravachol) 40 mg DAILY PO 08/24/17 09:00 Prednisolone Acetate (Pred Forte 1% Opth Susp) 1 drop QID RIGHT EYE 08/23/17 18:00 Sodium Chloride 500 ml @ 30 mls/hr [id number] PRN IV SEE LABEL COMMENTS 08/23/17 15:00 08/26/17 14:59 Metoprolol Tartrate (Lopressor) 25 mg [employer]OR PRN PO SEE LABEL COMMENTS 08/23/17 15:00 08/26/17 14:59 Povidone Iodine (Betadine 5% Antisepsis Kit) 1 applic [employer] PRN EACH NARE SEE LABEL COMMENTS 08/23/17 15:00 08/26/17 14:59 Chlorhexidine Gluconate (Chlorhexidine 2% Cloth) 3 pack [employer] PRN TOPICAL SEE LABEL COMMENTS 08/23/17 15:00 08/26/17 14:59 Sodium Chloride (NS Flush) 2 ml UNSCH PRN IV FLUSH FLUSH AFTER USING IV ACCESS 08/23/17 16:45 Sodium Chloride (NS Flush) 2 ml BID IV FLUSH 08/23/17 21:00 Pantoprazole Sodium (Protonix Inj) 40 mg DAILY IV PUSH 08/24/17 09:00 Clindamycin Phosphate 900 mg/ Sodium Chloride 106 ml @ 100 mls/hr Q8H IV 08/23/17 19:00 08/24/17 02:05 Pharmacy Profile Note 0 ml @ 0 mls/hr UNSCH OTHER 08/23/17 16:45 Acetaminophen/ Hydrocodone Bitart ([place] 5-325 Mg) 1 tab Q4H PRN PO PAIN SCALE 1 TO 5 08/23/17 17:15 Oxycodone HCl (Roxicodone) 10 mg Q4H PRN PO PAIN SCALE 6 TO 10 08/23/17 17:15 08/24/17 03:04 Morphine Sulfate (Morphine Inj) 2 mg Q3H PRN IV PUSH BREAKTHROUGH PAIN 08/23/17 18:15 Glucagon (Glucagon Inj) 1 mg UNSCH PRN OTHER HYPOGLYCEMIA-SEE COMMENTS 08/23/17 17:15 Sodium Bicarbonate 150 meq/Sterile Water 1,000 ml @ 150 mls/hr Q6H40M IV 08/23/17 19:00 08/24/17 01:27 Insulin Human Regular 100 units/ Sodium Chloride 100 ml @ 0.5 mls/hr TITRATE PRN IV Blood Glucose Control 08/23/17 19:00 08/23/17 18:26 Dextrose (D50w (Vial) Inj) 50 ml UNSCH PRN IV PUSH SEE LABEL COMMENTS 08/23/17 17:45 Piperacillin Sod/ Tazobactam Sod 50 ml @ 100 mls/hr Q6H IV 08/23/17 18:00 08/23/17 23:26 Miscellaneous Information ALL NURSING DEPARTME... UNSCH PRN .XX SEE LABEL COMMENTS 08/23/17 18:15 08/24/17 18:14 Miscellaneous Information SPECIFIC LAB TO BE BIBIANA... ONCE ONCE .XX 08/24/17 06:00 08/24/17 06:01 Family History Family member had an RI Social History Does not drink, smoke or use illicit drugs. Last smoked 40 years ago. Lives with ex- Physical Exam Vital Signs Vital Signs Date Time Temp Pulse Resp B/P (MAP) Pulse Ox O2 Delivery O2 Flow Rate FiO2 08/23/17 18:30 97.5 75 18 92/45 (61) 98 Nasal Cannula 3 08/23/17 18:15 75 18 112/56 (74) 98 Nasal Cannula 3 08/23/17 18:00 68 18 106/53 (70) 98 Nasal Cannula 3 08/23/17 17:45 70 16 112/56 (74) 98 Nasal Cannula 3 08/23/17 17:30 63 16 127/58 (81) 98 Nasal Cannula 3 08/23/17 17:20 97.7 63 16 118/58 (78) 93 Nasal Cannula 3 08/23/17 14:14 67 15 99/51 (67) 98 08/23/17 13:12 97 21 08/23/17 13:01 71 19 104/51 (68) 99 Room Air 08/23/17 11:01 69 16 117/56 (76) 99 Room Air 08/23/17 11:01 99 Room Air 08/23/17 10:21 18 08/23/17 09:06 96.8 65 14 105/52 (69) 99 Physical Exam GENERAL: This is a well-developed patient, obese patient in no apparent distress. SKIN: No rashes, ecchymoses or lesions. Cool and dry. No sacral ulcers. Other skin findings described in MSK exam below HEAD: Atraumatic. Normocephalic. No temporal or scalp tenderness. EYES: Pupils equal round and reactive. Extraocular motions intact. No scleral icterus. No injection or drainage. ENT: Nose without bleeding, purulent drainage or septal hematoma. Throat without erythema, tonsillar hypertrophy or exudate. Uvula midline. Airway patent. Upper dentures present NECK: Trachea midline. No JVD or lymphadenopathy. Supple, nontender, no meningeal signs. CARDIOVASCULAR: Regular rate and rhythm without murmurs, gallops, or rubs. RESPIRATORY: Clear to auscultation. Breath sounds equal bilaterally. No wheezes , rales, or rhonchi. GASTROINTESTINAL: Abdomen soft, non-tender, nondistended. No hepato-splenomegaly , or palpable masses. No guarding. MUSCULOSKELETAL: Decreased sensation in both feet and legs bilaterally. Right foot swelling, erythema, ankle appears deformed. Venous stasis dermatitis bilaterally. Callus on big toe of left foot. NEUROLOGICAL: Awake and alert. Cranial nerves II through XII intact. Normal speech. Laboratory Laboratory Tests Test 08/23/17 10:45 08/23/17 18:01 08/23/17 18:04 White Blood Count 20.4 16.9 Red Blood Count 3.40 2.93 Hemoglobin 9.8 8.8 Hematocrit 31.0 26.6 Mean Corpuscular Volume 91.2 90.7 Mean Corpuscular Hemoglobin 28.9 30.1 Mean Corpuscular Hemoglobin Concent 31.7 33.2 Red Cell Distribution Width 15.1 15.0 Platelet Count 181 160 Mean Platelet Volume 7.3 7.9 Neutrophils (%) (Auto) 96.3 Lymphocytes (%) (Auto) 1.4 Monocytes (%) (Auto) 2.0 Eosinophils (%) (Auto) 0.1 Basophils (%) (Auto) 0.2 Neutrophils # (Auto) 19.7 Lymphocytes # (Auto) 0.3 Monocytes # (Auto) 0.4 Eosinophils # (Auto) 0.0 Basophils # (Auto) 0.0 CBC Comment DIFF FINAL Differential Comment Blood Urea Nitrogen 128 132 Creatinine 4.35 4.02 Random Glucose 381 325 Total Protein 7.6 6.3 Albumin 2.4 1.9 Calcium Level 8.7 7.9 Alkaline Phosphatase 503 379 Aspartate Amino Transf (AST/SGOT) 52 37 Alanine Aminotransferase (ALT/SGPT) 73 59 Total Bilirubin 0.6 0.5 Sodium Level 127 131 Potassium Level 5.8 5.8 Chloride Level 98 102 Carbon Dioxide Level 13.3 14.8 Anion Gap 16 14 Estimat Glomerular Filtration Rate 14 15 Lactic Acid Level 1.5 1.5 Urine Color YELLOW Urine Turbidity HAZY Urine pH 5.0 Urine Specific [place] 1.014 Urine Protein 30 Urine Glucose (UA) 150 Urine Ketones NEG Urine Occult Blood MOD Urine Nitrite NEG Urine Bilirubin NEG Urine Urobilinogen LESS THAN 2.0 Urine Leukocyte Esterase NEG Urine RBC 55 Urine WBC 7 Urine Amorphous Sediment RARE Urine Bacteria OCC Microscopic Urinalysis Comment CATH-CULTURE IND Urine Random Creatinine 59 Urine Microalbumin/Creatinine Ratio 283 Prothrombin Time 13.2 Prothromb Time International Ratio 1.3 Activated Partial Thromboplast Time 43.2 Phosphorus Level 4.9 Magnesium Level 1.7 C-Reactive Protein 31.80 Triglycerides Level 140 Cholesterol Level 58 LDL Cholesterol 8 HDL Cholesterol 22.0 Cholesterol/HDL Ratio 2.63 Thyroid Stimulating Hormone 3rd Gen 1.100 B-Hydroxybutyrate 0.99 Date/Time Source Procedure Growth Status 08/23/17 10:45 Blood Peripheral Aerobic Blood Culture Pending Received 08/23/17 10:45 Blood Peripheral Anaerobic Blood Culture Pending Received 08/23/17 18:01 Urine Clean Catch Urine Culture Pending Received 08/23/17 16:33 Wound Ankle Fungal Smear Pending Received 08/23/17 16:33 Wound Ankle Fungal Culture Pending Received Result Diagram: 08/23/17 1804 08/23/17 1804 Imaging Last 24 hours Impressions Foot X-Ray 08/23/17 1019 Signed Impressions: Service Date/Time: Wednesday, August 23, 2017 11:34 - CONCLUSION: Concerning soft tissue air and swelling around the deformed ankle, possible osteomyelitis. Trever Deutsch MD Septic Shock Reassessment Septic shock perfusion: reassessment completed Assessment and Plan Assessment and Plan Right foot gangrene - Broad-spectrum antibiotics - Status post debridement in the OR - Recommend amputation by surgeon, refused by patient - Further management per podiatry Diabetes - Insulin drip - Nothing by mouth - Transition to subcutaneous insulin when better controlled Hypertension - Metoprolol 25 mg by mouth twice a day - When necessary meds to keep SBP less than 150 Hyperlipidemia - Pravastatin Chronic kidney disease - IV hydration - Strict I's and O's - Monitor electrolytes and creatinine Anxiety/depression - Fluoxetine - Alprazolam when necessary DVT GI prophylaxis - Teds SCDs on the left - Pharmacological DVT prophylaxis per surgeon - Omeprazole Critical Care: The total critical care time was 35 minutes. Time to perform other separately billable procedures was not included in the critical care time. Steven Ortiz MD Aug 23, 2017 9:12 pm
[2017-08-23 22:21] LABS: HEMOGLOBIN A1C 8.4 % (4.3-6.0)
--- NOTE | 2017-08-23 23:44 | HHI.PR ---
Addendum to Inpatient Note Addendum Reason: Additional Documentation Additional Information S: Patient seen by resident team after return from PACU. Patient states that pain is currently well controlled, denies chest pain or shortness of breath. He is aware of the findings during surgery and plans to have a thorough discussion with his family tomorrow regarding the possibility of amputation. Patient has no complaints at this time. O: Temp 97.5, BP 107/51, HR 72, RR 18, O2 98% on 3 L Gen: Obese male laying in bed comfortably in no acute distress with nasal cannula in place. CV: Warm and well perfused, regular rate and rhythm with no murmurs appreciated Resp: Clear to auscultation in anterior lung smith Ext: Right ankle heavily wrapped, clean dry and intact A/P: 71-year-old with history of diabetes found to have gangrenous wound on the right foot/ankle status post I&D/debridement. Further discussions on potential amputation of the foot to take place tomorrow . Vital signs stable at this time Wound cultures obtained and will follow up Continue IV fluids Continue insulin drip per protocol Continue bicarbonate drip Continue antibiotics Follow-up BMP and replete electrolytes as needed Seen and discussed with Dr. Zhu (Edd Irizarry MD R1) Edd Irizarry MD R1 Aug 23, 2017 23:44 Tiffanie Frye MD Aug 24, 2017 15:04
[2017-08-24] VITALS (11 sets, daily range): BP systolic 101–131; BP diastolic 51–62; PULSE 69–92; RESP 11–23; TEMP 98.1–99.7; O2SAT 93–100
[2017-08-24 00:35] LABS: HEMATOCRIT 23.5 % (39.0-51.0); HEMOGLOBIN 7.8 GM/DL (13.0-17.0); MEAN CELL VOLUME 89.6 FL (80.0-100.0); MEAN CORPUSCULAR HEMOGLOBIN 29.9 PG (27.0-34.0); MEAN CORPUSCULAR HGB CONC 33.3 % (32.0-36.0); MEAN PLATELET VOLUME 7.2 FL (7.0-11.0); PLATELET COUNT 141 TH/MM3 (150-450); RED BLOOD COUNT 2.62 MIL/MM3 (4.50-5.90); RED CELL DISTRIBUTION WIDTH 14.7 % (11.6-17.2)
[2017-08-24 01:11] LABS: BICARBONATE 17.3 MEQ/L (21.0-32.0); CALCIUM 7.4 MG/DL (8.5-10.1); CREATININE 3.82 MG/DL (0.60-1.30)
[2017-08-24] MEDS: SODIUM BICARBONATE 8.4% INJ 150 MEQ in WATER STERILE FOR INJ 850 ML IV SCH ×3 (01:27→15:29)
[2017-08-24] MEDS: CLINDAMYCIN INJ 900 MG in SODIUM CHLORIDE 0.9% INJ 100 ML IV SCH ×2 (02:05→11:02)
--- NOTE | 2017-08-24 04:21 | RADRPT ---
EXAM DATE/TIME: 08/24/2017 03:26 [facility] COMPARISON: CT FOOT RIGHT W/O CONTRAST, July 16, 2017, 21:19. INDICATIONS : Ankle pain; ulcer. RADIATION DOSE: 7.29 CTDIvol (mGy) MEDICAL HISTORY : Diabetes mellitus type 2. Hypertension. SURGICAL HISTORY : None. ENCOUNTER: Initial ACUITY: 1 day PAIN SCALE: 10/10 LOCATION: Right ankle TECHNIQUE: Volumetric scanning of the ankle was performed. Using automated exposure control and adjustment of t he mA and/or kV according to patient size, radiation dose was kept as low as reasonably achievable to obtain optimal diagnostic quality images. DICOM format image data is available electronically for review and comparison. FINDINGS: There is a screw through the calcaneus and talus. There is also a screw through the talus and na vicular bone. Large clips for fusion are seen between the talus and navicular bone and the calcaneus and cuboid bones. There is gas seen in the calcaneus, talus, cuboid and distal tibia and fibula. Ther e are destructive changes seen at the posterior calcaneus air seen within the ankle joint. Air seen t hroughout the soft tissues of the lower leg. There appears to be a large ulcer at the distal lateral ankle region extending to the fibula and anterior lateral aspect of the tibia. There is also a large ulcer at the posterior aspect of the heel extending to the posterior calcaneus. There is fatty atroph y of the muscular structures at the inferior aspect of the lower leg. CONCLUSION: Large ulcers of the lateral ankle and posterior foot extending to the bony structures with extensive air in the soft tissues, bones of the hindfoot and distal tibia and fibula. There are destructive jhony nges of the posterior calcaneus. These findings are all consistent with severe infection and osteomye litis. The patient has had prior fusion of hindfoot. Elmer Tidwell MD on August 24, 2017 at 4:10 Board Certified Radiologist. This report was verified electronically.
--- NOTE | 2017-08-24 05:31 | MB ---
cc: ADA DELAROSA DPM DATE OF CONSULTATION 08/23/2017 REASON FOR CONSULTATION Right foot/ankle/leg gas gangrene. Diabetic foot infection. HISTORY OF PRESENT ILLNESS A 71-year-old male who was seen earlier today within the ED. The patient was being worked up and there is noted to be gas within the tissue. The ED notified me. I ordered the patient needed an emergency incision, drainage and debridement with consultation for [id number] amputation. The patient's history is that he had a reconstruction of some type within the last 10 years or so but he has been dealing with a chronic heel ulcer for which she has been seeing Dr. Sparks. It apparently healed but then had a callus that opened up approximately one month ago. He went to the ER and he was given oral antibiotics. He continued to have decline, sluggishness and started having blackness and discoloration of his right limb. The patient had severe difficulty with nausea over the last couple of days, today saw Dr. Sparks and then the patient was sent to the ER. PAST MEDICAL HISTORY Diabetes. Hypertension. Flat foot reconstruction. Chronic pain. Anxiety. Hypercholesteremia. Hypertension. OUTPATIENT MEDICATIONS Reviewed and verified. INPATIENT MEDICATIONS Reviewed and verified. The patient is receiving - 1. Vancomycin. 2. Clindamycin. 3. Zosyn. ALLERGIES SUCCINYLCHOLINE. PHYSICAL EXAMINATION VITAL SIGNS: Temperature is 96.8, pulse rate 65, respiratory rate 14, blood pressure 105/52. He is sating 99% on room air. GENERAL: This is an alert and oriented, obese male. EXTREMITIES: On right lower extremity focused exam there is noted to be necrosis of the posterior heel, soft tissue emphysema upon palpating the anterior medial and mainly the lateral ankle with erythema and edema extending up to the distal leg. The posterior calf and posterior knee were palpated. There was no obvious clinical signs of gas at this level. The foot had good capillary fill time to the digits. There appeared to be a mild foot deformity, limited motion of the foot and crepitus upon range of motion of the ankle. Pulses are hard to palpate because of the edema. The right lower extremity is free from any obvious soft tissue or musculoskeletal deficit. However, there appears to be decreased circulation and decreased sensation below the patient's bilateral knees. LABORATORY FINDINGS White blood cell 20.4, hemoglobin and hematocrit 931, platelet count is 181. Chem-7 - Sodium 127, potassium 5.8, chloride 98, CO2 is 13.3, BUN is 128, creatinine is 4.35. Random glucose is 381. Alkaline phosphatase elevated at 503, AST is 52. IMAGING FINDINGS Foot x-ray is consistent with gas-forming organism within the anterior aspect of the foot and lateral ankle. There appears to be a fracture through the calcaneus with a screw intact and multiple raphael within the midfoot. There is calcification of the vessel seen. ASSESSMENT AND PLAN 1. Right leg/foot/ankle abscess, likely infected hardware. 2. Gas gangrene. 3. Posterior heel ulcer. Plan is for emergent incision, and drainage and debridement of the ankle. However, it did discuss the urgent nature of the case and the patient needs to consider consultation for [id number] amputation which he adamantly refused. I spoke in great detail with the patient that for the next 1-2 days this will likely be the only option. I do not think this limb is salvageable. The patient wished for a washout of the extremity. I agreed to move forward with this to hopefully prevent further spreading of sepsis. However, I do not think I can salvage this extremity. The patient was educated on the possibility of during surgery or shortly after. Consent was signed. I will consult Vascular for evaluation. CHARLIE Munroe/BANDAR /5:22 PM /5:13 AM
[2017-08-24] MEDS ORDERED: PHARMACY ORDERED LAB ONE (06:00)
[2017-08-24] MEDS: PIPERACIL-TAZO 2.25 GM PREMIX 50 ML IV SCH ×3 (06:01→17:24)
--- NOTE | 2017-08-24 06:15 | MB ---
cc: MARKELL GALARZA DATE OF CONSULTATION 08/23/[address] Galarza, Surgery REASON FOR CONSULTATION Gangrene of the right foot, septic shock, coronary artery disease and hypotension. CRITICAL CARE TIME 38 minutes. HISTORY OF PRESENT DISEASE This 71-year-old male with a history of diabetes presents with a chronic right foot infection. He was being followed by Dr. Sparks at the wound care clinic and had two courses of antibiotics. The patient now comes with a gangrenous right ankle with the gas gangrene and foul-smelling wound. The patient was taken to the operating room by Dr. Sun for debridement and apparently in the operating room dropped his pressure, went to hypotensive shock, had to be resuscitated is now in the recovery room. He is awake and alert. PAST MEDICAL HISTORY 1. Diabetes mellitus. 2. Coronary artery disease. 3. Renal insufficiency. 4. COPD. SURGICAL HISTORY Repeated debridements of the right foot. MEDICATIONS Medications can be found on the record. SOCIAL HISTORY The patient does not smoke or drink at this point but smoked in the past. PHYSICAL EXAMINATION GENERAL: A 71-year-old gentleman appearing pale, normocephalic. HEENT: No trauma to the head. Pupils equally reactive. Extraocular muscles intact. NECK: Supple. Carotid pulses with bilateral carotid faint bruits. CHEST: Decreased breath sounds over both lung smith consistent with moderate degree of COPD. HEART: Regular rhythm. ABDOMEN: Soft. No rebound. No guarding. No masses. EXTREMITIES: The patient has actually palpable femoral pulses and no distal pulses. From there on palpation he has a large right heel ulcer and also gas gangrene of the right foot all the way down up to the ankle with crepitus. This is a foul-smelling, wet gangrene. NEUROLOGICALLY: The patient is grossly stable. IMPRESSION AND RECOMMENDATIONS I have reviewed laboratory and diagnostic procedures. This gentleman has gas gangrene of the right foot, infected hardware in the right ankle. At this point the patient absolutely, positively needs a right below-knee amputation in the form of a guillotine otherwise he will go into renal failure and from septic shock in the next 24-48 hours. At this point the patient adamantly refuses amputation. Markell GEORGES/BANDAR /6:09 PM /6:03 AM
[2017-08-24 06:25] LABS: HEMOGLOBIN 8.2 GM/DL (13.0-17.0); MEAN CELL VOLUME 87.7 FL (80.0-100.0); MEAN CORPUSCULAR HGB CONC 34.2 % (32.0-36.0); MEAN PLATELET VOLUME 7.4 FL (7.0-11.0); PLATELET COUNT 161 TH/MM3 (150-450); RED BLOOD COUNT 2.73 MIL/MM3 (4.50-5.90); RED CELL DISTRIBUTION WIDTH 14.7 % (11.6-17.2); WHITE BLOOD COUNT 18.8 TH/MM3 (4.0-11.0)
[2017-08-24 06:51] LABS: ALBUMIN 1.9 GM/DL (3.4-5.0); ALT (GPT) 55 U/L (12-78); AST (GOT) 44 U/L (15-37); BICARBONATE 19.7 MEQ/L (21.0-32.0); BLOOD UREA NITROGEN 121 MG/DL (7-18); CALCIUM 7.5 MG/DL (8.5-10.1); CHLORIDE 101 MEQ/L (98-107); CREATININE 3.73 MG/DL (0.60-1.30); GLOMERULAR FILTRATION RATE 16 ML/MIN (>89); GLUCOSE,RANDOM 116 MG/DL (74-106); SODIUM (NA) 135 MEQ/L (136-145)
[2017-08-24 06:53] LABS: ALKALINE PHOSPHATASE 337 U/L (45-117); RANDOM VANCOMYCIN 23.6 COMMENT; TOTAL BILIRUBIN ADULT 0.5 MG/DL (0.2-1.0); TOTAL PROTEIN 6.3 GM/DL (6.4-8.2)
[2017-08-24] MEDS: MORPHINE SULFATE 2 MG/ML INJ IV PUSH PRN ×4 (06:53→17:54)
[2017-08-24 07:55] LABS: BANDS 8 % (0-6); LYMPHOCYTES 6 % (9-44); MONOCYTES 5 % (0-8); NEUTROPHIL # MANUAL DIFF 16.5 TH/MM3 (1.8-7.7); POLYS (SEG NEUTROPHILS) 80 % (16-70)
[2017-08-24 07:56] LABS: TOXIC GRANULATION 1+ (NORMAL)
[2017-08-24] MEDS ORDERED: PRAVASTATIN SOD 40 MG TAB PO SCH (09:00)
[2017-08-24] MEDS ORDERED: HYDROCHLOROTHIAZIDE 25 MG TAB PO SCH (09:00)
[2017-08-24] MEDS ORDERED: PANTOPRAZOLE SODIUM 40 MG VIAL IV PUSH SCH (09:00)
[2017-08-24] MEDS ORDERED: FLUoxetine HCL 10 MG CAP PO SCH (09:00)
[2017-08-24] MEDS ORDERED: LISINOPRIL 20 MG TAB PO SCH (09:00)
[2017-08-24] MEDS: prednisoLONE ACETATE 1% OPHT SUSP 5 ML BTL RIGHT EYE SCH ×3 (09:04→17:24)
[2017-08-24] MEDS: SODIUM CHLORIDE 0.9% FLUSH 10 ML FLUSH IV FLUSH SCH (09:04)
--- NOTE | 2017-08-24 10:04 | RADRPT ---
EXAM DATE/TIME: 08/24/2017 08:48 [facility] COMPARISON: No previous studies available for comparison. INDICATIONS : Increased BUN/Creatinine. MEDICAL HISTORY : Hypertension. Chronic obstructive pulmonary disease. Anticoagulant therapy. Renal disease. Coronary artery disease. Hyperlipidemia. Diabetes. SURGICAL HISTORY : Right elbow and foot fracture repairs. Right cornea transplant. ENCOUNTER: Initial ACUITY: 1 day PAIN SCORE: 3/10 LOCATION: Bilateral flank MEASUREMENTS: RIGHT KIDNEY: 12.2 x 6.0 x 6.6 cm LEFT KIDNEY: 12.8 x 5.5 x 6.2 cm FINDINGS: The gallbladder appears to be markedly distended but was incompletely imaged. RIGHT KIDNEY: Renal cortex is normal in thickness and echotexture. No hydronephrosis, stone, or solid mass. In th e upper lateral right kidney there is a 2.7 x 2.5 cm thickwalled cyst LEFT KIDNEY: Renal cortex is normal in thickness and echotexture. No hydronephrosis, or mass. Echogenic 12 x 6 x 10 mm area upper lateral aspect left kidney suspected stone. BLADDER: Within normal limits given the degree of distension. CONCLUSION: Normal examination except for stone in the left kidney and a stone in the right kidney. Trever Deutsch MD on August 24, 2017 at 10:00 Board Certified Radiologist. This report was verified electronically.
--- NOTE | 2017-08-24 11:42 | MP ---
cc: ADA DELAROSA DPM DATE OF SURGERY: 08/23/2017 PREOPERATIVE DIAGNOSIS Right foot, ankle, leg diabetic ulcer with gas producing organism. POSTOPERATIVE DIAGNOSIS Right foot, ankle, leg diabetic ulcer with gas producing organism. PROCEDURE PERFORMED Wide excision of posterior heel ulcer, lateral and medial incision and drainage of ankle with lateral and anterior fasciotomy of distal leg. SPECIMEN Deep wound culture and bone for pathology. ESTIMATED BLOOD LOSS Approximately 400 mL. TOURNIQUET No tourniquet was used. COMPLICATIONS None. However, anesthesia recommended ICU admission from PACU. INJECTABLES None. JUSTIFICATION FOR PROCEDURE A 71-year-old male who was seen in the ED today and diagnosed with gas gangrene of the leg. He refused amputation but permitted for incision and drainage, educated the patient that he will likely lose the limb regardless, and he is increasing his risk of by delaying [id number] amputation. We left the OR to stabilize the patient in anticipation for amputation within the next 1-2 days. The patient's was present before surgery and understood in great detail the risks and benefits of the surgery. PROCEDURE IN DETAIL Under mild sedation the patient was brought in the operating room, placed on the operating table in the supine position. Following the induction of LMA general anesthesia, the patient's pressure dropped, at that time the patient was intubated and stabilized per Anesthesia. The right lower extremity was then scrubbed, prepped and draped in the usual aseptic fashion. The foot was elevated and examined. There is a necrotic posterior heel ulcer with purulent drainage and a foul odor. There is fluctuance, erythema of the medial ankle but more impressively upon the whole entire lateral foot, ankle and distal leg. An L-shaped type incision was made approximately 20-30 cm of the distal leg. Sharp and blunt dissection was carried down through subcutaneous fat. There is noted to be subcutaneous air bubbles upon incising the lateral aspect of the distal fibula entering the lateral aspect of the ankle joint. Copious amounts of necrotic purulent material was removed. A rongeur was used to remove as much fatty necrotic tissue as possible. The bone appeared to have a molted appearance, it did not appear viable, a small specimen was taken of the distal fibula at this time. Further dissection took place along the subfascial plane of the extensor compartment as well as the lateral compartment exposing muscle belly. There is noted to be no obvious proximal extension at the level of the distal tibia and lateral ankle. Posterior dissection took place entering the posterior compartment of the ankle. There is no obvious gas bubbles felt in this area. A medial incision was made of the anterior medial ankle down to the ankle joint, allowing for dissection along the anterior medial compartment of the leg which there apparently was no obvious gas bubbles. The majority of the infection was in the distal lateral ankle and leg. At this time a full-thickness incision was made removing the necrotic purulent foul-smelling heel ulcer, exposing the calcaneus. There was felt to be crepitus and obvious pathologic calcaneal fracture. Superficial bleeders were cauterized. The wound was then flushed with 3 liters of normal saline. The wound was then packed open. A bulky bandage was applied. The patient was transferred to PACU with vital signs relatively stable. He was extubated. A consultation was placed to the chief operations officer as recommended per anesthesia. Due to the patient's sodium level, poor kidney function, the patient will need to be medically optimized for [id number] amputation if possible. I have already spoken to Dr. Galarza regarding the case. I spoke to the patient's in PACU. She is in full agreement for [id number] amputation as soon as the patient permits, and should the patient fail to make a decision, the patient's informed me that she has Power of Dba Manager. CHARLIE Munroe/RAYMOND /5:29 PM /11:13 AM
--- NOTE | 2017-08-24 11:43 | PD.ID.CON ---
History of Present Illness Service ID Consult Requested By Dr. Frye. Reason for Consult Evaluation and Mment of Right LE gangrenous ulcers, gas gangrene possible necrotizing fascitis in setting of hardware. Primary Care Physician Migue Jeter M.D. Diagnoses: History of Present Illness Most of the history was obtained by review of medical records as patient was just told he may need amputation and appeared depressed. is a 71 y/o CM with PMHx of poorly controlled DM with chronic foot ulcers, HTN, CKD, Hyperlipidemia. Patient has hardware in his right foot and has a chronic ulcer for which he has been at wound care center. He has been seeing and in past. He saw on day of admission and due to concern for infection patient was sent to the ED at [facility] by . His reports that for the last 1 week patient has had blisters and extremely foul smelling discharge with excruciating pain but he has been avoiding the hospital and doctors. She forced him to see and clinic and was directed to the hospital. He denies any fever, chills, and night sweats but has not been eating much in the last week. He was taken to operating room for Right foot ankle leg incision drainage debridement by Dr. Sun with recommendations of amputation, however patient' s refused and wants to think about it overnight. has recommended amputation as well. saw the patient and recommended amputation as well. Palliative care is following this patient and patient is discussing no further surgery with hospice as a possibility. At the time of my evaluation, patient is in the ICU. Currently not on any pressors, UO ok. On room air. Alert and oriented and appropriate. He was started on Zosyn IV, Vanco IV and Clindamycin for gas gangrene and necrotizing fascitis. ID consulted for Sepsis and gas gangrene of right foot. Review of Systems ROS Limitations: Poor Historian Constitutional: COMPLAINS OF: Change in appetite, DENIES: Diaphoretic episodes , Fatigue, Fever, Weight gain, Weight loss, Chills, Dizziness, Night Sweats Endocrine: DENIES: Heat/cold intolerance, Polydipsia, Polyuria, Polyphagia Eyes: DENIES: Blurred vision, Diplopia, Eye inflammation, Eye pain, Vision loss , Photosensitivity, Double Vision Ears, nose, mouth, throat: DENIES: Tinnitus, Hearing loss, Vertigo, Nasal discharge, Oral lesions, Throat pain, Hoarseness, Ear Pain, Running Nose, Epistaxis, Sinus Pain, Toothache, Odynophagia Respiratory: DENIES: Apneas, Cough, Snoring, Wheezing, Hemoptysis, Sputum production, Shortness of breath Cardiovascular: DENIES: Chest pain, Palpitations, Syncope, Dyspnea on Exertion , PND, Lower Extremity Edema, Orthopnea, Claudication Gastrointestinal: DENIES: Abdominal pain, Black stools, Bloody stools, Constipation, Diarrhea, Nausea, Vomiting, Difficulty Swallowing, Anorexia Genitourinary: DENIES: Sexual dysfunction, Urinary frequency, Urinary incontinence, Urgency, Hematuria, Dysuria, Nocturia, Penile Discharge, Testicular Pain, Testicular Swelling Musculoskeletal: COMPLAINS OF: Joint pain, Joint Swelling, DENIES: Muscle aches , Stiffness, Back pain, Neck pain Integumentary: COMPLAINS OF: Abnormal pigmentation, DENIES: Nail changes, Pruritus, Rash Hematologic/lymphatic: DENIES: Bruising, Lymphadenopathy Immunologic/allergic: DENIES: Eczema, Urticaria Neurologic: DENIES: Abnormal gait, Headache, Localized weakness, Paresthesias, Seizures, Speech Problems, Tremor, Poor Balance Psychiatric: DENIES: Anxiety, Confusion, Mood changes, Depression, Hallucinations, Agitation, Suicidal Ideation, Homicidal Ideation, Delusions Except as stated in HPI: all other systems reviewed are Neg Past Family Social History Allergies: Coded Allergies: succinylcholine (Verified Allergy, Unknown, 08/23/17) No Known Allergies (Unverified Adverse Reaction, Unknown, 08/23/17) Past Medical History Diabetes type 2, he is not currently on any diabetic medications Hypertension Hyperlipidemia Chronic kidney disease Anxiety/depression Past Surgical History Right corneal transplant Reported Medications Reported Meds & Active Scripts Active Hydrocodone-Acetaminophen 5-325 mg Tab 1 Tab PO Q6H PRN Wheelchair Cushion (Device) 1 Mis Mis Ea .ROUTE DIRECTED Wheelchair (Device) 1 Mis Mis Ea .ROUTE DIRECTED Reported Fish Oil 1200 mg ([place]-3 Fatty Acids) 360 Mg-1,200 Mg Cap Multiple Vitamins (Multiple Vitamin) 1 Tab Tab Fluoxetine (Fluoxetine HCl) 10 Mg Tab 10 Mg PO DAILY Pred Forte Opth 1% (Prednisolone Acetate Opth 1%) 1% Susp 1 Drop RIGHT EYE QID Lovastatin 40 Mg Tab 40 Mg PO DAILY Labetalol (Labetalol HCl) 100 Mg Tab 100 Mg PO BID [place] (Hydrocodone-Acetaminophen) 10-325 Mg Tab 1 Tab PO DIRECTED PRN Hydrochlorothiazide 25 Mg Tab 25 Mg PO DAILY Xanax (Alprazolam) 0.5 Mg Tab 0.5 Mg PO DIRECTED PRN Active Ordered Medications Current Medications Medications (Trade) Dose Ordered Sig/Shweta Route Start Time Stop Time Status Last Admin (Xanax) 0.5 mg DAILY PRN PO 08/23/17 14:00 (PROzac) 10 mg DAILY PO 08/24/17 09:00 08/24/17 09:09 (Hydrodiuril) 25 mg DAILY PO 08/24/17 09:00 08/24/17 09:04 (Pravachol) 40 mg DAILY PO 08/24/17 09:00 08/24/17 09:04 (Pred Forte 1% Opth Susp) 1 drop QID RIGHT EYE 08/23/17 18:00 08/24/17 09:04 Sodium Chloride 500 ml @ 30 mls/hr [id number] PRN IV 08/23/17 15:00 08/26/17 14:59 (Lopressor) 25 mg WET AND DRY SUGAR BIN OPERATOR PRN PO 08/23/17 15:00 08/26/17 14:59 (Betadine 5% Antisepsis Kit) 1 applic WET AND DRY SUGAR BIN OPERATOR PRN EACH NARE 08/23/17 15:00 08/26/17 14:59 (Chlorhexidine 2% Cloth) 3 pack WET AND DRY SUGAR BIN OPERATOR PRN TOPICAL 08/23/17 15:00 08/26/17 14:59 (NS Flush) 2 ml UNSCH PRN IV FLUSH 08/23/17 16:45 (NS Flush) 2 ml BID IV FLUSH 08/23/17 21:00 08/24/17 09:04 (Protonix Inj) 40 mg DAILY IV PUSH 08/24/17 09:00 08/24/17 09:04 Clindamycin Phosphate 900 mg/ Sodium Chloride 106 ml @ 100 mls/hr Q8H IV 08/23/17 19:00 08/24/17 11:02 Pharmacy Profile Note 0 ml @ 0 mls/hr UNSCH OTHER 08/23/17 16:45 ([place] 5-325 Mg) 1 tab Q4H PRN PO 08/23/17 17:15 (Roxicodone) 10 mg Q4H PRN PO 08/23/17 17:15 08/24/17 06:01 (Morphine Inj) 2 mg Q3H PRN IV PUSH 08/23/17 18:15 08/24/17 09:55 (Glucagon Inj) 1 mg UNSCH PRN OTHER 08/23/17 17:15 Sodium Bicarbonate 150 meq/Sterile Water 1,000 ml @ 150 mls/hr Q6H40M IV 08/23/17 19:00 08/24/17 09:03 Insulin Human Regular 100 units/ Sodium Chloride 100 ml @ 0.5 mls/hr TITRATE PRN IV 08/23/17 19:00 08/23/17 18:26 (D50w (Vial) Inj) 50 ml UNSCH PRN IV PUSH 08/23/17 17:45 Piperacillin Sod/ Tazobactam Sod 50 ml @ 100 mls/hr Q6H IV 08/23/17 18:00 08/24/17 06:01 Miscellaneous Information ALL NURSING DEPARTME... UNSCH PRN .XX 08/23/17 18:15 08/24/17 18:14 Family History reviewed and NC. Social History lives with his ex . Physical Exam Vital Signs Vital Signs Date Time Temp Pulse Resp B/P (MAP) Pulse Ox O2 Delivery O2 Flow Rate FiO2 08/24/17 10:00 84 08/24/17 10:00 21 08/24/17 08:00 84 08/24/17 08:00 99.4 84 20 107/58 (74) 95 08/24/17 07:01 20 08/24/17 06:00 79 08/24/17 04:00 98.2 74 11 101/55 (70) 97 08/24/17 04:00 74 08/24/17 02:18 99 Nasal Cannula 3.00 08/24/17 02:00 69 08/24/17 00:00 69 08/24/17 00:00 98.1 69 17 103/51 (68) 100 08/23/17 23:00 69 08/23/17 22:00 72 08/23/17 21:00 71 08/23/17 20:00 98.7 71 20 99/49 (66) 18 08/23/17 20:00 71 08/23/17 18:30 97.5 75 18 92/45 (61) 98 Nasal Cannula 3 08/23/17 18:15 75 18 112/56 (74) 98 Nasal Cannula 3 08/23/17 18:00 68 18 106/53 (70) 98 Nasal Cannula 3 08/23/17 17:45 70 16 112/56 (74) 98 Nasal Cannula 3 08/23/17 17:30 63 16 127/58 (81) 98 Nasal Cannula 3 08/23/17 17:20 97.7 63 16 118/58 (78) 93 Nasal Cannula 3 08/23/17 14:14 67 15 99/51 (67) 98 08/23/17 13:12 97 21 08/23/17 13:01 71 19 104/51 (68) 99 Room Air Physical Exam GENERAL: This is a well-nourished, well-developed patient, in no apparent distress. SKIN: No rashes, ecchymoses or lesions. Cool and dry. HEAD: Atraumatic. Normocephalic. No temporal or scalp tenderness. EYES: Pupils equal round and reactive. Extraocular motions intact. No scleral icterus. No injection or drainage. ENT: Nose without bleeding, purulent drainage or septal hematoma. Throat without erythema, tonsillar hypertrophy or exudate. Uvula midline. Airway patent. NECK: Trachea midline. Supple, nontender, no meningeal signs. CARDIOVASCULAR: Regular rate and rhythm without murmurs, gallops, or rubs. RESPIRATORY: Clear to auscultation. Breath sounds equal bilaterally. No wheezes , rales, or rhonchi. GASTROINTESTINAL: Abdomen soft, non-tender, nondistended. MUSCULOSKELETAL: Right foot with extremely foul smelling discharge emanating at the door. Skin with margins that appear blackening. NEUROLOGICAL: Awake and alert. Non focal exam. Psych cooperative IV line sites with no e.o infection. Laboratory Laboratory Tests Test 08/23/17 18:01 08/23/17 18:04 08/23/17 19:15 08/23/17 23:50 Urine Color YELLOW Urine Turbidity HAZY Urine pH 5.0 Urine Specific [place] 1.014 Urine Protein 30 Urine Glucose (UA) 150 Urine Ketones NEG Urine Occult Blood MOD Urine Nitrite NEG Urine Bilirubin NEG Urine Urobilinogen LESS THAN 2.0 Urine Leukocyte Esterase NEG Urine RBC 55 Urine WBC 7 Urine Amorphous Sediment RARE Urine Bacteria OCC Microscopic Urinalysis Comment CATH-CULTURE IND Urine Random Creatinine 59 Urine Microalbumin/Creatinine Ratio 283 White Blood Count 16.9 19.0 Red Blood Count 2.93 2.62 Hemoglobin 8.8 7.8 Hematocrit 26.6 23.5 Mean Corpuscular Volume 90.7 89.6 Mean Corpuscular Hemoglobin 30.1 29.9 Mean Corpuscular Hemoglobin Concent 33.2 33.3 Red Cell Distribution Width 15.0 14.7 Platelet Count 160 141 Mean Platelet Volume 7.9 7.2 Erythrocyte Sedimentation Rate GREATER THAN 140 Prothrombin Time 13.2 Prothromb Time International Ratio 1.3 Activated Partial Thromboplast Time 43.2 Blood Urea Nitrogen 132 120 Creatinine 4.02 3.82 Random Glucose 325 177 Total Protein 6.3 6.0 Albumin 1.9 Calcium Level 7.9 7.4 Phosphorus Level 4.9 Magnesium Level 1.7 Alkaline Phosphatase 379 Aspartate Amino Transf (AST/SGOT) 37 Alanine Aminotransferase (ALT/SGPT) 59 Total Bilirubin 0.5 Sodium Level 131 133 Potassium Level 5.8 4.9 Chloride Level 102 104 Carbon Dioxide Level 14.8 17.3 Anion Gap 14 12 Estimat Glomerular Filtration Rate 15 16 Hemoglobin A1c 8.4 Lactic Acid Level 1.5 C-Reactive Protein 31.80 Triglycerides Level 140 Cholesterol Level 58 LDL Cholesterol 8 HDL Cholesterol 22.0 Cholesterol/HDL Ratio 2.63 Thyroid Stimulating Hormone 3rd Gen 1.100 B-Hydroxybutyrate 0.99 0.10 Nasal Screen MRSA (PCR) MRSA NOT DETECTED Protein Corrected Calcium 8.0 Test 08/24/17 05:14 White Blood Count 18.8 Red Blood Count 2.73 Hemoglobin 8.2 Hematocrit 24.0 Mean Corpuscular Volume 87.7 Mean Corpuscular Hemoglobin 30.0 Mean Corpuscular Hemoglobin Concent 34.2 Red Cell Distribution Width 14.7 Platelet Count 161 Mean Platelet Volume 7.4 CBC Comment AUTO DIFF Differential Total Cells Counted 100 Neutrophils % (Manual) 80 Band Neutrophils % 8 Lymphocytes % 6 Monocytes % 5 Eosinophils % 1 Neutrophils # (Manual) 16.5 Differential Comment FINAL DIFF MANUAL Atypical Lymphocytes Toxic Granulation 1+ Platelet Estimate NORMAL Platelet Morphology Comment NORMAL Blood Urea Nitrogen 121 Creatinine 3.73 Random Glucose 116 Total Protein 6.3 Albumin 1.9 Calcium Level 7.5 Alkaline Phosphatase 337 Aspartate Amino Transf (AST/SGOT) 44 Alanine Aminotransferase (ALT/SGPT) 55 Total Bilirubin 0.5 Sodium Level 135 Potassium Level 4.7 Chloride Level 101 Carbon Dioxide Level 19.7 Anion Gap 14 Estimat Glomerular Filtration Rate 16 Random Vancomycin Level 23.6 B-Hydroxybutyrate 0.57 Date/Time Source Procedure Growth Status 08/23/17 10:45 Blood Peripheral Aerobic Blood Culture - Preliminary Strep Anginosus/Milleri Resulted 08/23/17 10:45 Anaerobic Blood Culture - Preliminary Gram Positive Cocci Resulted 08/23/17 18:01 Urine Clean Catch Urine Culture Pending Received 08/23/17 16:33 Wound Ankle Fungal Smear - Final NO FUNGAL ELEMENTS SEEN. Resulted 08/23/17 16:33 Wound Ankle Fungal Culture Pending Resulted Result Diagram: 08/24/17 0514 08/24/17 0514 Imaging Last Impressions Renal Ultrasound 08/24/17 0000 Signed Impressions: Service Date/Time: August 08:48 - CONCLUSION: Normal examination except for stone in the left kidney and a stone in the right kidney. Trever Deutsch MD Foot X-Ray 08/23/17 1019 Signed Impressions: Service Date/Time: Wednesday, August 23, 2017 11:34 - CONCLUSION: Concerning soft tissue air and swelling around the deformed ankle, possible osteomyelitis. Trever Deutsch MD Lower Extremity CT 08/23/17 0000 Signed Impressions: Service Date/Time: August 03:26 - CONCLUSION: Large ulcers of the lateral ankle and posterior foot extending to the bony structures with extensive air in the soft tissues, bones of the hindfoot and distal tibia and fibula. There are destructive changes of the posterior calcaneus. These findings are all consistent with severe infection and osteomyelitis. The patient has had prior fusion of hindfoot. Elmer Tidwell MD Assessment and Plan Assessment and Plan Sepsis present on admission(leucocytosis, hypothermia, source: gas gangrene Gas Gangrene/Necrotizing fascitis of right foot. DM uncontrolled on insulin drip. Hypertension Hyperlipidemia Chronic kidney disease Anxiety/depression Recs: Continue Zosyn IV Continue Vanco IV (target 15-20) Continue Clindamycin IV(for toxin neutralization) Follow cultures. Follow clinically. D.w patient about ID issues: discussed importance of source control (amputation) . Discussed bacteremia and sepsis as a result of gas gangrene of foot. Patient is alert and oriented and voiced his decision that he does not want any further surgeries and would like to go with hospice. I explained to him that if he chose hospice IV antibiotics cannot be given to him. He would have to go with PO antibiotics which could be suboptimal for condition being treated and could be fatal. I also explained to him that it is his choice to go with PO antibiotics or NO antibiotics. He can think about this and discuss further with hospice and let RN know so she can inform me. Patients ex-(HCS/POA) tried to convince him to have amputation but he was determined to go with no surgery and hospice. Critical thinking and decision making. Pam Adhikari MD Aug 24, 2017 11:43
--- NOTE | 2017-08-24 12:32 | PD.CONS ---
Consult Service Palliative Care Consult Requested By Dr. Mike . Primary Care Physician Migue Jeter M.D. . Reason for Consultation a. To assist with evaluation and management of symptoms including: Pain b. To assist medical decision maker(s) with: better understanding of current medical conditions; weighing benefits/burdens of medical treatment options; making medical treatment decisions. . HPI History of Present Illness This 71-year-old male, with a past history of diabetes, neuropathy, anemia, chronic kidney disease, and a chronic right foot wound, was treated for a possible infection of his right foot wound via an emergency department visit a month ago (and he took 2 antibiotics), and he now began getting weaker and losing his appetite about 10 days prior to this hospitalization on 08/23/17. His right foot became more painful, and he became unable to ambulate because of the weakness and the pain. He saw Dr. Sparks who sent him to the hospital for admission. In the emergency department, findings included * Alert, some pain * Temp 96.8, pulse 69, respirations 16, blood pressure 117/56, oxygen saturation 99% on room air * White count 20.4, hemoglobin 9.8 * Glucose 381, sodium 127, creatinine 4.35, albumin 2.4, potassium 5.8 * AST 52, ALT 73 * CO2 was 13 * X-ray of the foot was suspicious for osteomyelitis * CT of the foot/leg provided evidence of osteo Blood cultures were obtained, IV antibiotics were started, and the patient was admitted. Podiatry took the patient to the operating room for debridement of the infection, and the patient developed shock that required some resuscitation. On 08/24/17, his blood cultures were noted to be positive for gram-positive cocci, the white count was 18.8, creatinine 3.73, and GFR 16. The alkaline phosphatase remained elevated at 337. A renal ultrasound was essentially negative. The patient was seen in consultation by vascular surgery who noted clear indications for amputation. The patient was uncertain whether he wanted to have an amputation, and Palliative Care was consulted to assist with symptom management, and to enter into discussions with the patient and his healthcare surrogate regarding his illnesses, the prognosis, and the benefits and burdens of the various treatment choices. . Function/Cognitive Trajectory The patient has remained cognitively intact. He was able to ambulate with a walker or cane until the 10 days prior to this admission when the foot became too uncomfortable and he was using a wheelchair. Because of vision problems he had stopped driving more than a year ago. . Review of Systems Constitutional: COMPLAINS OF: Weight loss Endocrine: DENIES: Polyuria Eyes: COMPLAINS OF: Blurred vision (chronic), DENIES: Eye inflammation Ears, nose, mouth, throat: DENIES: Epistaxis Respiratory: COMPLAINS OF: Shortness of breath (on admission) Cardiovascular: DENIES: Chest pain Gastrointestinal: DENIES: Abdominal pain, Bloody stools, Vomiting, Vomiting blood Genitourinary: DENIES: Hematuria Musculoskeletal: COMPLAINS OF: Joint pain (right ankle and foot), Joint Swelling (right ankle and foot), DENIES: Back pain Integumentary: DENIES: Rash Hematologic/Lymphatics: DENIES: Bruising Immunologic/Allergic: DENIES: Urticaria Neurologic: DENIES: Localized weakness, Seizures Psychiatric: DENIES: Hallucinations, Agitation Past Family Social History Coded Allergies: succinylcholine (Verified Allergy, Unknown, 08/23/17) No Known Allergies (Unverified Adverse Reaction, Unknown, 08/23/17) Past Medical History * Diabetes for many years * Chronic kidney disease, creatinine 2.0 month prior to this admission * Chronic anemia * Hypertension * Hyperlipidemia * Chronic right foot ulcer * Anxiety * Depression . Past Surgical History * Right elbow fracture repair * Right cornea transplant * "Flat foot reconstruction" * Right hindfoot fusion * Debridement of right foot infection 08/23/17 . Reported Medications Reported Meds & Active Scripts Active Hydrocodone-Acetaminophen 5-325 mg Tab 1 Tab PO Q6H PRN Wheelchair Cushion (Device) 1 Mis Mis Ea .ROUTE DIRECTED Wheelchair (Device) 1 Mis Mis Ea .ROUTE DIRECTED Reported Fish Oil 1200 mg ([place]-3 Fatty Acids) 360 Mg-1,200 Mg Cap Multiple Vitamins (Multiple Vitamin) 1 Tab Tab Fluoxetine (Fluoxetine HCl) 10 Mg Tab 10 Mg PO DAILY Pred Forte Opth 1% (Prednisolone Acetate Opth 1%) 1% Susp 1 Drop RIGHT EYE QID Lovastatin 40 Mg Tab 40 Mg PO DAILY Labetalol (Labetalol HCl) 100 Mg Tab 100 Mg PO BID [place] (Hydrocodone-Acetaminophen) 10-325 Mg Tab 1 Tab PO DIRECTED PRN Hydrochlorothiazide 25 Mg Tab 25 Mg PO DAILY Xanax (Alprazolam) 0.5 Mg Tab 0.5 Mg PO DIRECTED PRN . Current Medications Medications (Trade) Dose Ordered Sig/Shweta Route Start Time Stop Time Status Last Admin (Xanax) 0.5 mg DAILY PRN PO 08/23/17 14:00 (PROzac) 10 mg DAILY PO 08/24/17 09:00 08/24/17 09:09 (Hydrodiuril) 25 mg DAILY PO 08/24/17 09:00 08/24/17 09:04 (Pravachol) 40 mg DAILY PO 08/24/17 09:00 08/24/17 09:04 (Pred Forte 1% Opth Susp) 1 drop QID RIGHT EYE 08/23/17 18:00 08/24/17 09:04 Sodium Chloride 500 ml @ 30 mls/hr [id number] PRN IV 08/23/17 15:00 08/26/17 14:59 (Lopressor) 25 mg FURNITURE REPAIR TECHNICIAN PRN PO 08/23/17 15:00 08/26/17 14:59 (Betadine 5% Antisepsis Kit) 1 applic FURNITURE REPAIR TECHNICIAN PRN EACH NARE 08/23/17 15:00 08/26/17 14:59 (Chlorhexidine 2% Cloth) 3 pack FURNITURE REPAIR TECHNICIAN PRN TOPICAL 08/23/17 15:00 08/26/17 14:59 (NS Flush) 2 ml UNSCH PRN IV FLUSH 08/23/17 16:45 (NS Flush) 2 ml BID IV FLUSH 08/23/17 21:00 08/24/17 09:04 (Protonix Inj) 40 mg DAILY IV PUSH 08/24/17 09:00 08/24/17 09:04 Clindamycin Phosphate 900 mg/ Sodium Chloride 106 ml @ 100 mls/hr Q8H IV 08/23/17 19:00 08/24/17 11:02 Pharmacy Profile Note 0 ml @ 0 mls/hr UNSCH OTHER 08/23/17 16:45 ([place] 5-325 Mg) 1 tab Q4H PRN PO 08/23/17 17:15 (Roxicodone) 10 mg Q4H PRN PO 08/23/17 17:15 08/24/17 06:01 (Morphine Inj) 2 mg Q3H PRN IV PUSH 08/23/17 18:15 08/24/17 09:55 (Glucagon Inj) 1 mg UNSCH PRN OTHER 08/23/17 17:15 Sodium Bicarbonate 150 meq/Sterile Water 1,000 ml @ 150 mls/hr Q6H40M IV 08/23/17 19:00 08/24/17 09:03 Insulin Human Regular 100 units/ Sodium Chloride 100 ml @ 0.5 mls/hr TITRATE PRN IV 08/23/17 19:00 08/23/17 18:26 (D50w (Vial) Inj) 50 ml UNSCH PRN IV PUSH 08/23/17 17:45 Piperacillin Sod/ Tazobactam Sod 50 ml @ 100 mls/hr Q6H IV 08/23/17 18:00 08/24/17 06:01 Miscellaneous Information ALL NURSING DEPARTME... UNSCH PRN .XX 08/23/17 18:15 08/24/17 18:14 Family History The patient's father with diabetic complications, and his mother of dementia. There is a family history of [place]. . Substance Use Tobacco: Quit smoking about 40 years ago Alcohol: None Prescription med abuse: None Illicits: None . Psychosocial History The patient was born in [place], lived and worked in [place] for 37 years, and now has been here in [place] for about 6 years. He has been 3 times: Sabrina shane, his current HCS/POA was his first and third , both times. His second . He had no children. The patient worked for many years in [employer] and the [employer] business, including years at the [facility] facilities in [place]. . Spiritual/Cultural Factors The patient is not spiritual or church and does not desire migration agent visit. . Living Will: Copy in medical record Health Care Surrogate: Copy in medical record Date completed: 12/16/12 . Health Care Surrogate(s): Healthcare surrogate is Sabrina shane, his ex-. . Documented care wishes: The patient has a living will with typical language . Today's verbally stated goals: Initially, the patient was uncertain as to whether he would want to undergo the amputation or transition to comfort measures. He took into account the recommendations from his attending physician, the vascular surgeon, the infectious disease doctor, and his trusted wound doctor (Dr. Sparks); he also asked questions about the transition to comfort measures and hospice services. Ultimately, he tells me that he has decided to NOT have the amputation, and he wants to engage hospice services for end-of-life care. He was also very clear that he would not want to be resuscitated. . Family/friends goals: The patient's HCS/ex- Sabrina Shane did want the patient to undergo the amputation, but she is respecting his wishes. . Ethical and Legal Issues There are no ethical issues that would impact his care were decision-making at this time The patient is alert, oriented, and demonstrates good insight and judgment; he has capacity for decision-making. He has selected his ex- Sabrina Shane as his healthcare surrogate. . Physical Exam Vital Signs Date Time Temp Pulse Resp B/P (MAP) Pulse Ox O2 Delivery O2 Flow Rate FiO2 08/24/17 10:00 84 08/24/17 10:00 21 08/24/17 08:00 84 08/24/17 08:00 99.4 84 20 107/58 (74) 95 08/24/17 07:01 20 08/24/17 06:00 79 08/24/17 04:00 98.2 74 11 101/55 (70) 97 08/24/17 04:00 74 08/24/17 02:18 99 Nasal Cannula 3.00 08/24/17 02:00 69 08/24/17 00:00 69 08/24/17 00:00 98.1 69 17 103/51 (68) 100 08/23/17 23:00 69 08/23/17 22:00 72 08/23/17 21:00 71 08/23/17 20:00 98.7 71 20 99/49 (66) 18 08/23/17 20:00 71 08/23/17 18:30 97.5 75 18 92/45 (61) 98 Nasal Cannula 3 08/23/17 18:15 75 18 112/56 (74) 98 Nasal Cannula 3 08/23/17 18:00 68 18 106/53 (70) 98 Nasal Cannula 3 08/23/17 17:45 70 16 112/56 (74) 98 Nasal Cannula 3 08/23/17 17:30 63 16 127/58 (81) 98 Nasal Cannula 3 08/23/17 17:20 97.7 63 16 118/58 (78) 93 Nasal Cannula 3 08/23/17 14:14 67 15 99/51 (67) 98 1/17/18 13:12 97 21 08/23/17 13:01 71 19 104/51 (68) 99 Room Air Exam CONSTITUTIONAL/GENERAL: This is an adequately nourished patient, in no apparent distress. TUBES/LINES/DRAINS: SCD left leg, bandages right ankle/foot, nasal oxygen, IV SKIN: No jaundice, rashes, or lesions. Ecchymoses on upper extremities. No wounds seen anteriorly. Skin temperature appropriate. Not diaphoretic. HEAD: Atraumatic. Normocephalic. EYES: Pupils equal and round and reactive. Extraocular motions intact. No scleral icterus. No injection or drainage. Fundi not examined. ENT: Hearing grossly normal. Nose without bleeding or purulent drainage. Throat without visible erythema, exudates, masses, or lesions. NECK: Trachea midline. Supple, nontender. No palpable thyroid enlargement or nodularity. CARDIOVASCULAR: Regular rate and rhythm without murmurs, gallops, or rubs. No JVD. Peripheral pulses symmetric. RESPIRATORY/CHEST: Symmetric, unlabored respirations. Clear to auscultation. Breath sounds equal bilaterally. No wheezes, rales, or rhonchi. GASTROINTESTINAL: Abdomen soft, non-tender, moderately obese. No hepato- splenomegaly, or palpable masses. No guarding. Bowel sounds present. GENITOURINARY: Without palpable bladder distension. MUSCULOSKELETAL: Extremities without clubbing or cyanosis. Bandages cover the right ankle and foot LYMPHATICS: No palpable cervical or supraclavicular adenopathy. NEUROLOGICAL: Awake and alert. Motor and sensory grossly within normal limits. Follows commands. Cognitively sharp. Moves all extremities. PSYCHIATRIC: No obvious anxiety/depression. no apparent hallucinations or other psychotic thought process. . Diagnostic Tests Laboratory Laboratory Tests Test 08/23/17 10:45 08/23/17 18:01 08/23/17 18:04 08/23/17 19:15 White Blood Count 20.4 TH/MM3 (4.0-11.0) 16.9 TH/MM3 (4.0-11.0) Red Blood Count 3.40 MIL/MM3 (4.50-5.90) 2.93 MIL/MM3 (4.50-5.90) Hemoglobin 9.8 GM/DL (13.0-17.0) 8.8 GM/DL (13.0-17.0) Hematocrit 31.0 % (39.0-51.0) 26.6 % (39.0-51.0) Mean Corpuscular Volume 91.2 FL (80.0-100.0) 90.7 FL (80.0-100.0) Mean Corpuscular Hemoglobin 28.9 PG (27.0-34.0) 30.1 PG (27.0-34.0) Mean Corpuscular Hemoglobin Concent 31.7 % (32.0-36.0) 33.2 % (32.0-36.0) Red Cell Distribution Width 15.1 % (11.6-17.2) 15.0 % (11.6-17.2) Platelet Count 181 TH/MM3 (150-450) 160 TH/MM3 (150-450) Mean Platelet Volume 7.3 FL (7.0-11.0) 7.9 FL (7.0-11.0) Neutrophils (%) (Auto) 96.3 % (16.0-70.0) Lymphocytes (%) (Auto) 1.4 % (9.0-44.0) Monocytes (%) (Auto) 2.0 % (0.0-8.0) Eosinophils (%) (Auto) 0.1 % (0.0-4.0) Basophils (%) (Auto) 0.2 % (0.0-2.0) Neutrophils # (Auto) 19.7 TH/MM3 (1.8-7.7) Lymphocytes # (Auto) 0.3 TH/MM3 (1.0-4.8) Monocytes # (Auto) 0.4 TH/MM3 (0-0.9) Eosinophils # (Auto) 0.0 TH/MM3 (0-0.4) Basophils # (Auto) 0.0 TH/MM3 (0-0.2) CBC Comment DIFF FINAL Differential Comment Blood Urea Nitrogen 128 MG/DL (7-18) 132 MG/DL (7-18) Creatinine 4.35 MG/DL (0.60-1.30) 4.02 MG/DL (0.60-1.30) Random Glucose 381 MG/DL (74-106) 325 MG/DL (74-106) Total Protein 7.6 GM/DL (6.4-8.2) 6.3 GM/DL (6.4-8.2) Albumin 2.4 GM/DL (3.4-5.0) 1.9 GM/DL (3.4-5.0) Calcium Level 8.7 MG/DL (8.5-10.1) 7.9 MG/DL (8.5-10.1) Alkaline Phosphatase 503 U/L (45-117) 379 U/L (45-117) Aspartate Amino Transf (AST/SGOT) 52 U/L (15-37) 37 U/L (15-37) Alanine Aminotransferase (ALT/SGPT) 73 U/L (12-78) 59 U/L (12-78) Total Bilirubin 0.6 MG/DL (0.2-1.0) 0.5 MG/DL (0.2-1.0) Sodium Level 127 MEQ/L (136-145) 131 MEQ/L (136-145) Potassium Level 5.8 MEQ/L (3.5-5.1) 5.8 MEQ/L (3.5-5.1) Chloride Level 98 MEQ/L (98-107) 102 MEQ/L (98-107) Carbon Dioxide Level 13.3 MEQ/L (21.0-32.0) 14.8 MEQ/L (21.0-32.0) Anion Gap 16 MEQ/L (5-15) 14 MEQ/L (5-15) Estimat Glomerular Filtration Rate 14 ML/MIN (>89) 15 ML/MIN (>89) Lactic Acid Level 1.5 mmol/L (0.4-2.0) 1.5 mmol/L (0.4-2.0) Urine Color YELLOW (YELLW/STRAW) Urine Turbidity HAZY (CLEAR) Urine pH 5.0 (5.0-8.5) Urine Specific [place] 1.014 (1.002-1.035) Urine Protein 30 mg/dL (NEG-TRACE) Urine Glucose (UA) 150 mg/dL (NEG) Urine Ketones NEG mg/dL (NEG) Urine Occult Blood MOD (NEG) Urine Nitrite NEG (NEG) Urine Bilirubin NEG (NEG) Urine Urobilinogen LESS THAN 2.0 MG/DL (LESS Urine Leukocyte Esterase NEG (NEG) Urine RBC 55 /hpf (0-3) Urine WBC 7 /hpf (0-5) Urine Amorphous Sediment RARE Urine Bacteria OCC /hpf (NONE) Microscopic Urinalysis Comment CATH-CULTURE IND Urine Random Creatinine 59 MG/DL (27-300) Urine Microalbumin/Creatinine Ratio 283 MG/G CRE (0-30) Erythrocyte Sedimentation Rate GREATER THAN 140 mm/hr Prothrombin Time 13.2 SEC (9.8-11.6) Prothromb Time International Ratio 1.3 RATIO Activated Partial Thromboplast Time 43.2 SEC (24.3-30.1) Phosphorus Level 4.9 MG/DL (2.5-4.9) Magnesium Level 1.7 MG/DL (1.5-2.5) Hemoglobin A1c 8.4 % (4.3-6.0) C-Reactive Protein 31.80 MG/DL (0.00-0.30) Triglycerides Level 140 MG/DL (42-150) Cholesterol Level 58 MG/DL (120-200) LDL Cholesterol 8 MG/DL (0-99) HDL Cholesterol 22.0 MG/DL (40.0-60.0) Cholesterol/HDL Ratio 2.63 RATIO Thyroid Stimulating Hormone 3rd Gen 1.100 uIU/ML (0.358-3.740) B-Hydroxybutyrate 0.99 MMOL/L (0.00-0.39) Nasal Screen MRSA (PCR) MRSA NOT DETECTED (NOT Test 08/23/17 23:50 08/24/17 05:14 White Blood Count 19.0 TH/MM3 (4.0-11.0) 18.8 TH/MM3 (4.0-11.0) Red Blood Count 2.62 MIL/MM3 (4.50-5.90) 2.73 MIL/MM3 (4.50-5.90) Hemoglobin 7.8 GM/DL (13.0-17.0) 8.2 GM/DL (13.0-17.0) Hematocrit 23.5 % (39.0-51.0) 24.0 % (39.0-51.0) Mean Corpuscular Volume 89.6 FL (80.0-100.0) 87.7 FL (80.0-100.0) Mean Corpuscular Hemoglobin 29.9 PG (27.0-34.0) 30.0 PG (27.0-34.0) Mean Corpuscular Hemoglobin Concent 33.3 % (32.0-36.0) 34.2 % (32.0-36.0) Red Cell Distribution Width 14.7 % (11.6-17.2) 14.7 % (11.6-17.2) Platelet Count 141 TH/MM3 (150-450) 161 TH/MM3 (150-450) Mean Platelet Volume 7.2 FL (7.0-11.0) 7.4 FL (7.0-11.0) Blood Urea Nitrogen 120 MG/DL (7-18) 121 MG/DL (7-18) Creatinine 3.82 MG/DL (0.60-1.30) 3.73 MG/DL (0.60-1.30) Random Glucose 177 MG/DL (74-106) 116 MG/DL (74-106) Total Protein 6.0 GM/DL (6.4-8.2) 6.3 GM/DL (6.4-8.2) Calcium Level 7.4 MG/DL (8.5-10.1) 7.5 MG/DL (8.5-10.1) Sodium Level 133 MEQ/L (136-145) 135 MEQ/L (136-145) Potassium Level 4.9 MEQ/L (3.5-5.1) 4.7 MEQ/L (3.5-5.1) Chloride Level 104 MEQ/L (98-107) 101 MEQ/L (98-107) Carbon Dioxide Level 17.3 MEQ/L (21.0-32.0) 19.7 MEQ/L (21.0-32.0) Anion Gap 12 MEQ/L (5-15) 14 MEQ/L (5-15) Estimat Glomerular Filtration Rate 16 ML/MIN (>89) 16 ML/MIN (>89) Protein Corrected Calcium 8.0 MG/DL (8.5-10.1) B-Hydroxybutyrate 0.10 MMOL/L (0.00-0.39) 0.57 MMOL/L (0.00-0.39) CBC Comment AUTO DIFF Differential Total Cells Counted 100 Neutrophils % (Manual) 80 % (16-70) Band Neutrophils % 8 % (0-6) Lymphocytes % 6 % (9-44) Monocytes % 5 % (0-8) Eosinophils % 1 % (0-4) Neutrophils # (Manual) 16.5 TH/MM3 (1.8-7.7) Differential Comment FINAL DIFF MANUAL Atypical Lymphocytes % (0-0) Toxic Granulation 1+ (NORMAL) Platelet Estimate NORMAL (NORMAL) Platelet Morphology Comment NORMAL (NORMAL) Albumin 1.9 GM/DL (3.4-5.0) Alkaline Phosphatase 337 U/L (45-117) Aspartate Amino Transf (AST/SGOT) 44 U/L (15-37) Alanine Aminotransferase (ALT/SGPT) 55 U/L (12-78) Total Bilirubin 0.5 MG/DL (0.2-1.0) Random Vancomycin Level 23.6 COMMENT Result Diagram: 08/24/17 0514 08/24/17 0514 Microbiology Microbiology Date/Time Source Procedure Growth Status 08/23/17 10:45 Blood Peripheral Aerobic Blood Culture - Preliminary Strep Anginosus/Milleri Resulted 08/23/17 10:45 Anaerobic Blood Culture - Preliminary Gram Positive Cocci Resulted 08/23/17 10:40 Blood Peripheral Aerobic Blood Culture - Preliminary Gram Positive Cocci Resulted 08/23/17 10:40 Anaerobic Blood Culture - Preliminary Gram Positive Cocci Resulted 08/23/17 18:01 Urine Clean Catch Urine Culture Pending Received 08/23/17 16:33 Wound Ankle Fungal Smear - Final NO FUNGAL ELEMENTS SEEN. Resulted 08/23/17 16:33 Wound Ankle Fungal Culture Pending Resulted 08/23/17 16:33 Wound Ankle Acid Fast Stain Pending Received 08/23/17 16:33 Wound Ankle Mycobacterial Culture Pending Received 08/23/17 16:33 Wound Ankle Gram Stain - Final Resulted 08/23/17 16:33 Wound Ankle Wound Culture Pending Resulted Imaging Last Impressions Renal Ultrasound 08/24/17 0000 Signed Impressions: Service Date/Time: August 08:48 - CONCLUSION: Normal examination except for stone in the left kidney and a stone in the right kidney. Trever Deutsch MD Foot X-Ray 08/23/17 1019 Signed Impressions: Service Date/Time: Wednesday, August 23, 2017 11:34 - CONCLUSION: Concerning soft tissue air and swelling around the deformed ankle, possible osteomyelitis. Trever Deutsch MD Lower Extremity CT 08/23/17 0000 Signed Impressions: Service Date/Time: Thursday, August 24, 2017 03:26 - CONCLUSION: Large ulcers of the lateral ankle and posterior foot extending to the bony structures with extensive air in the soft tissues, bones of the hindfoot and distal tibia and fibula. There are destructive changes of the posterior calcaneus. These findings are all consistent with severe infection and osteomyelitis. The patient has had prior fusion of hindfoot. Elmer Tidwell MD Procedures Debridement of right foot/ankle infection 08/23/17 . Patient/Family Conference Present at Family Conference: Me, the patient, [facility] Dr. Clare Serrano, Dr. Efrain Adhikari . Family Conference Time (mins): 55 Family Conference Location: Bedside Issues Discussed: * Palliative care role, purpose, approach * Hospice care role, purpose, approach * Additional medical, psychosocial, and spiritual history * Patients general health, functional status, and cognitive changes in the months leading up to the current hospitalization * Patient/family understanding of the current medical problems * Patient/family understanding of prognosis * Patients goals of care as best understood from advance directives and/or conversations and/or values * Current medical treatment options and benefits/burdens of those options * Likely scenarios comparing ongoing aggressive care with a transition to comfort measures only * Questions answered to the best of my ability * Palliative care contact information provided Initially, the patient was uncertain as to whether he would want to undergo the amputation or transition to comfort measures. He took into account the recommendations from his attending physician, the vascular surgeon, the infectious disease doctor, and his trusted wound doctor (Dr. Sparks), as well as his ex-/HCS; he also asked me questions about the transition to comfort measures and hospice services. Ultimately, he tells me that he has decided to NOT have the amputation, and he wants to engage hospice services for end-of- life care. He was also very clear that he would not want to be resuscitated. . Assessment and Plan Disease Oriented Problem List: (1) sepsis, gram-positive (2) gangrene, osteomyelitis, open wounds right foot/ankle (3) acute kidney injury (4) chronic kidney disease (5) diabetes (6) peripheral neuropathy (7) anemia (8) hypertension (9) hyperlipidemia (10) anxiety (11) depression Symptom Scale: (1) anxiety 0-10 Scale: Unable to quantify (2) pain 0-10 Scale: 2 Pertinent Non-Medical Issues Psychosocial: Retired computer expert, no children, 3 times, currently living with his ex-. Spiritual: He is not spiritual and does not want a migration agent visit. Legal: The patient is alert, oriented, and demonstrates good insight and judgment; he has capacity for decision-making. He has selected his ex- Sabrina Shane as his healthcare surrogate. Ethical issues impacting care: None . Important Contacts Sabrina Shane, ex- and current HCS/POA [phone] . Prognosis With the decision that the patient has made to not have the amputation, he is terminal. He is appropriate for hospice services since his goals have become comfort oriented. . Code Status: No Code Plan * DO NOT RESUSCITATE * GOALS: Initially, the patient was uncertain as to whether he would want to undergo the amputation or transition to comfort measures. He took into account the recommendations from his attending physician, the vascular surgeon, the infectious disease doctor, and his trusted wound doctor (Dr. Sparks), as well as his ex-/HCS; he also asked me questions about the transition to comfort measures and hospice services. Ultimately, he tells me that he has decided to NOT have the amputation, and he wants to engage hospice services for end-of- life care. He was also very clear that he would not want to be resuscitated. * Hospice consult placed. * DECISION-MAKING: The patient is alert, oriented, and demonstrates good insight and judgment; he has capacity for decision-making. He has selected his ex- Sabrina Shane as his healthcare surrogate. * SYMPTOMS: The patient does have some ongoing pain in the right foot/ankle, and he will benefit from some opiates when hospice services are engaged. * Palliative Care will continue to follow the patient during this hospitalization. . Time Spent Total Floor Time (mins): 82 Face to Face Time (mins): 62 >50% Counseling/Coord of Care: Yes (dmw Drs. Sparks and Zeynep, and w RN) Thank you for the opportunity to participate in the care of Mr. Sharif. Attestation To help prompt me to consider important information that might be impacting today's encounter and assessment, information from prior notes written by myself or my colleagues may have been "brought forward" into today's note. My signature on this note, however, is an attestation that I personally performed the exam, history, and/or decision-making noted today, and, unless otherwise indicated, the interactions with patient, family, and staff as well as the review of records all occurred today. I also attest that the listed assessment and stated plan reflect my best clinical judgment today based on the combination of historical information, prior notes, and today's exam/ interactions. When time spent is documented, it refers only to time spent today by the signer, or if indicated, combined time spent today by collaborating physician/nurse practitioner. Jacklyn Wright MD Aug 24, 2017 12:31
--- NOTE | 2017-08-24 12:36 | HHI.PR ---
Subjective Remarks Called by Palliative care physician Dr. Wright to speak with patient as the recommendations for Right BKA were discussed with above patient and patient wanted to discuss this with me. Patient follows up at the [facility] for Advanced wound healing and was being treated for right heel ulcer which became gangrenous and patient had been sent by myself to The ED yesterday. Patient is in bed and his is at bedside. He wanted to discuss having the Right BKA. Discussed with patient that this would be a life saving measure as he is septic. Also informed him that once he has the surgery he would also have the option of HBO as he has also been diagnosed with Osteomyelitis. Patient informed me that he has had a good life and did not want surgery. I reiterated the concept of this surgery being a life saving measure and he still refused. Patient and thanked me for my care. Discussed with Dr. Wright and , the patient's final wishes. Went back into the room to find out if he wanted palliative care and he voiced that he desired comfort measures. Dr. Wright was notified and will consult Hospice. Objective Vital Signs Date Time Temp Pulse Resp B/P (MAP) Pulse Ox O2 Delivery O2 Flow Rate FiO2 08/24/17 10:00 84 08/24/17 10:00 21 08/24/17 08:00 84 08/24/17 08:00 99.4 84 20 107/58 (74) 95 08/24/17 07:01 20 08/24/17 06:00 79 08/24/17 04:00 98.2 74 11 101/55 (70) 97 08/24/17 04:00 74 08/24/17 02:18 99 Nasal Cannula 3.00 08/24/17 02:00 69 08/24/17 00:00 69 08/24/17 00:00 98.1 69 17 103/51 (68) 100 08/23/17 23:00 69 08/23/17 22:00 72 08/23/17 21:00 71 08/23/17 20:00 98.7 71 20 99/49 (66) 18 08/23/17 20:00 71 08/23/17 18:30 97.5 75 18 92/45 (61) 98 Nasal Cannula 3 08/23/17 18:15 75 18 112/56 (74) 98 Nasal Cannula 3 1/17/18 18:00 68 18 106/53 (70) 98 Nasal Cannula 3 08/23/17 17:45 70 16 112/56 (74) 98 Nasal Cannula 3 08/23/17 17:30 63 16 127/58 (81) 98 Nasal Cannula 3 08/23/17 17:20 97.7 63 16 118/58 (78) 93 Nasal Cannula 3 08/23/17 14:14 67 15 99/51 (67) 98 08/23/17 13:12 97 21 08/23/17 13:01 71 19 104/51 (68) 99 Room Air I/O 08/23/17 08/23/17 08/23/17 08/24/17 08/24/17 08/24/17 07:00 15:00 23:00 07:00 15:00 23:00 Intake Total 350 ml 3136 ml 2147 ml Output Total 400 ml 800 ml Balance 350 ml 2736 ml 1347 ml Intake Oral 120 ml IV Total 350 ml 3136 ml 2027 ml Output Urine Total 800 ml Estimated Blood Loss 400 ml Result Diagram: 08/24/17 0514 08/24/17 0514 Assessment and Plan Problem List: (1) Osteomyelitis of right foot ICD Codes: M86.9 - Osteomyelitis, unspecified Status: Acute (2) Severe sepsis ICD Codes: A41.9 - Sepsis, unspecified organism; R65.20 - Severe sepsis without septic shock (3) Diabetes mellitus ICD Codes: E11.9 - Type 2 diabetes mellitus without complications Plan: Comfort measures and ADA diet as patient has opted for Hospice care. (4) Acute kidney injury superimposed on CKD ICD Codes: N17.9 - Acute kidney failure, unspecified; N18.9 - Chronic kidney disease, unspecified Plan: Patient has opted for Hospice care instead of life saving amputation. Problem Qualifiers (1) Diabetes mellitus: Shaina Sparks MD Aug 24, 2017 12:36
--- NOTE | 2017-08-24 13:11 | HHI.CCPN ---
Subjective Remarks/Hospital Course 71-year-old male with a past medical history of poorly controlled diabetes with chronic foot ulcers, hypertension, chronic kidney disease, and hyperlipidemia presents with a complaint of a worsened foot ulcer. He has been following up at the wound care clinic with Dr. Sparks who has been managing his ulcers. The ulcer was doing better until last Monday when he found a blister and then it started hurting again. Today, he went to see Dr. Sparks who asked him to come to the ED. Dr. Sparks also found another abscess underneath his foot. He was taken to operating room for Right foot ankle leg incision drainage debridement by Dr. Sun with recommendations of amputation, however patient's refused and wants to think about it overnight. 08/24 Patient is lying in bed in NAD. On Insulin drip 1u/hr Objective Vital Signs Date Time Temp Pulse Resp B/P (MAP) Pulse Ox O2 Delivery O2 Flow Rate FiO2 08/24/17 10:00 84 08/24/17 10:00 21 08/24/17 08:00 99.4 107/58 (74) 95 08/24/17 02:18 Nasal Cannula 3.00 08/23/17 13:12 21 Intake and Output 08/24/17 08/24/17 08/25/17 08:00 16:00 00:00 Intake Total 2147 ml Output Total 800 ml Balance 1347 ml Result Diagram: 08/24/17 0514 08/24/17 0514 Other Results Laboratory Tests Test 08/23/17 18:01 08/23/17 18:04 08/23/17 19:15 08/23/17 23:50 Urine Color YELLOW Urine Turbidity HAZY Urine pH 5.0 Urine Specific [place] 1.014 Urine Protein 30 mg/dL Urine Glucose (UA) 150 mg/dL Urine Ketones NEG mg/dL Urine Occult Blood MOD Urine Nitrite NEG Urine Bilirubin NEG Urine Urobilinogen LESS THAN 2.0 MG/DL Urine Leukocyte Esterase NEG Urine RBC 55 /hpf Urine WBC 7 /hpf Urine Amorphous Sediment RARE Urine Bacteria OCC /hpf Microscopic Urinalysis Comment CATH-CULTURE IND Urine Random Creatinine 59 MG/DL Urine Microalbumin/Creatinine Ratio 283 MG/G CRE White Blood Count 16.9 TH/MM3 19.0 TH/MM3 Red Blood Count 2.93 MIL/MM3 2.62 MIL/MM3 Hemoglobin 8.8 GM/DL 7.8 GM/DL Hematocrit 26.6 % 23.5 % Mean Corpuscular Volume 90.7 FL 89.6 FL Mean Corpuscular Hemoglobin 30.1 PG 29.9 PG Mean Corpuscular Hemoglobin Concent 33.2 % 33.3 % Red Cell Distribution Width 15.0 % 14.7 % Platelet Count 160 TH/MM3 141 TH/MM3 Mean Platelet Volume 7.9 FL 7.2 FL Erythrocyte Sedimentation Rate GREATER THAN 140 mm/hr Prothrombin Time 13.2 SEC Prothromb Time International Ratio 1.3 RATIO Activated Partial Thromboplast Time 43.2 SEC Blood Urea Nitrogen 132 MG/DL 120 MG/DL Creatinine 4.02 MG/DL 3.82 MG/DL Random Glucose 325 MG/DL 177 MG/DL Total Protein 6.3 GM/DL 6.0 GM/DL Albumin 1.9 GM/DL Calcium Level 7.9 MG/DL 7.4 MG/DL Phosphorus Level 4.9 MG/DL Magnesium Level 1.7 MG/DL Alkaline Phosphatase 379 U/L Aspartate Amino Transf (AST/SGOT) 37 U/L Alanine Aminotransferase (ALT/SGPT) 59 U/L Total Bilirubin 0.5 MG/DL Sodium Level 131 MEQ/L 133 MEQ/L Potassium Level 5.8 MEQ/L 4.9 MEQ/L Chloride Level 102 MEQ/L 104 MEQ/L Carbon Dioxide Level 14.8 MEQ/L 17.3 MEQ/L Anion Gap 14 MEQ/L 12 MEQ/L Estimat Glomerular Filtration Rate 15 ML/MIN 16 ML/MIN Hemoglobin A1c 8.4 % Lactic Acid Level 1.5 mmol/L C-Reactive Protein 31.80 MG/DL Triglycerides Level 140 MG/DL Cholesterol Level 58 MG/DL LDL Cholesterol 8 MG/DL HDL Cholesterol 22.0 MG/DL Cholesterol/HDL Ratio 2.63 RATIO Thyroid Stimulating Hormone 3rd Gen 1.100 uIU/ML B-Hydroxybutyrate 0.99 MMOL/L 0.10 MMOL/L Nasal Screen MRSA (PCR) MRSA NOT DETECTED Protein Corrected Calcium 8.0 MG/DL Test 08/24/17 05:14 White Blood Count 18.8 TH/MM3 Red Blood Count 2.73 MIL/MM3 Hemoglobin 8.2 GM/DL Hematocrit 24.0 % Mean Corpuscular Volume 87.7 FL Mean Corpuscular Hemoglobin 30.0 PG Mean Corpuscular Hemoglobin Concent 34.2 % Red Cell Distribution Width 14.7 % Platelet Count 161 TH/MM3 Mean Platelet Volume 7.4 FL CBC Comment AUTO DIFF Differential Total Cells Counted 100 Neutrophils % (Manual) 80 % Band Neutrophils % 8 % Lymphocytes % 6 % Monocytes % 5 % Eosinophils % 1 % Neutrophils # (Manual) 16.5 TH/MM3 Differential Comment FINAL DIFF MANUAL Atypical Lymphocytes % Toxic Granulation 1+ Platelet Estimate NORMAL Platelet Morphology Comment NORMAL Blood Urea Nitrogen 121 MG/DL Creatinine 3.73 MG/DL Random Glucose 116 MG/DL Total Protein 6.3 GM/DL Albumin 1.9 GM/DL Calcium Level 7.5 MG/DL Alkaline Phosphatase 337 U/L Aspartate Amino Transf (AST/SGOT) 44 U/L Alanine Aminotransferase (ALT/SGPT) 55 U/L Total Bilirubin 0.5 MG/DL Sodium Level 135 MEQ/L Potassium Level 4.7 MEQ/L Chloride Level 101 MEQ/L Carbon Dioxide Level 19.7 MEQ/L Anion Gap 14 MEQ/L Estimat Glomerular Filtration Rate 16 ML/MIN Random Vancomycin Level 23.6 COMMENT B-Hydroxybutyrate 0.57 MMOL/L Imaging Last Impressions Renal Ultrasound 08/24/17 0000 Signed Impressions: Service Date/Time: August 08:48 - CONCLUSION: Normal examination except for stone in the left kidney and a stone in the right kidney. Trever Deutsch MD Foot X-Ray 08/23/17 1019 Signed Impressions: Service Date/Time: Wednesday, August 23, 2017 11:34 - CONCLUSION: Concerning soft tissue air and swelling around the deformed ankle, possible osteomyelitis. Trever Deutsch MD Lower Extremity CT 08/23/17 0000 Signed Impressions: Service Date/Time: August 03:26 - CONCLUSION: Large ulcers of the lateral ankle and posterior foot extending to the bony structures with extensive air in the soft tissues, bones of the hindfoot and distal tibia and fibula. There are destructive changes of the posterior calcaneus. These findings are all consistent with severe infection and osteomyelitis. The patient has had prior fusion of hindfoot. Elmer Tidwell MD Objective Remarks GENERAL: This is a well-developed patient, obese patient in no apparent distress. SKIN: No rashes, ecchymoses or lesions. Cool and dry. No sacral ulcers. Other skin findings described in MSK exam below HEAD: Atraumatic. Normocephalic. No temporal or scalp tenderness. EYES: Pupils equal round and reactive. Extraocular motions intact. No scleral icterus. No injection or drainage. ENT: Nose without bleeding, purulent drainage or septal hematoma. Throat without erythema, tonsillar hypertrophy or exudate. Uvula midline. Airway patent. Upper dentures present NECK: Trachea midline. No JVD or lymphadenopathy. Supple, nontender, no meningeal signs. CARDIOVASCULAR: Regular rate and rhythm without murmurs, gallops, or rubs. RESPIRATORY: Clear to auscultation. Breath sounds equal bilaterally. No wheezes , rales, or rhonchi. GASTROINTESTINAL: Abdomen soft, non-tender, nondistended. No hepato-splenomegaly , or palpable masses. No guarding. MUSCULOSKELETAL: Decreased sensation in both feet and legs bilaterally. Right foot swelling, erythema, ankle appears deformed. Venous stasis dermatitis bilaterally. Callus on big toe of left foot. NEUROLOGICAL: Awake and alert. Cranial nerves II through XII intact. Normal speech. A/P Assessment and Plan Right foot gangrene - Status post debridement in the OR - Recommend amputation by surgeon, refused by patient Gram positive bacteremia Leukocytosis Hyponatremia Anemia Diabetes Hypertension Hyperlipidemia Acute on Chronic kidney disease Anxiety/depression Plan Neuro: Monitor neuro status, avoid sedatives Pulm: Continue with oxygen keep sat >92% Bronchodilators CV: Monitor HR and BP keep MAP>65mmHg : Monitor renal function, I/O's, avoid nephrotoxins Cr: 3.73 today from 4.02, on SW+3amps bicarb @150ml/hr US kidney- no hydronephrosis GI: NPO for now ID: Continue with abx per ID(Vanco, Zosyn, Clindamycin) BC 08/23: GPC. ID is following- Discussed with Dr. Adhikari Heme: Monitor CBC Endo: Transition to SSI and d/c insulin drip DVT GI prophylaxis - Teds SCDs on the left - Pharmacological DVT prophylaxis per surgeon - Omeprazole Palliative care is following. Patient is refusing surgery. Hospice service consulted Level 3 Kristine Urbina MD Aug 24, 2017 13:11
[2017-08-24] MEDS ORDERED: SODIUM CHLOR 0.9% 1000 ML INJ 1,000 ML IV SCH (13:15)
--- NOTE | 2017-08-24 16:27 | PD.CAR.PN ---
CVT Progress Note Subjective/Hospital Course: 08/24/17 Patient with gas gangrene of the right leg and sepsis As noted in my consultation I discussed this with the patient and patient will not agreed to below-knee amputation Patient needs urgent below-knee amputation before he develops multiorgan failure and succumbs to the sepsis No matter how many discussions patient has had with physicians he refuses surgery Please let me know if and when patient changes his mind Objective: Vital Signs Date Time Temp Pulse Resp B/P (MAP) Pulse Ox O2 Delivery O2 Flow Rate FiO2 08/24/17 14:00 83 08/24/17 12:00 84 08/24/17 12:00 99.7 84 20 110/53 (72) 94 08/24/17 10:00 84 08/24/17 10:00 21 08/24/17 08:00 84 08/24/17 08:00 99.4 84 20 107/58 (74) 95 08/24/17 07:01 20 08/24/17 06:00 79 08/24/17 04:00 98.2 74 11 101/55 (70) 97 08/24/17 04:00 74 08/24/17 02:18 99 Nasal Cannula 3.00 08/24/17 02:00 69 08/24/17 00:00 69 08/24/17 00:00 98.1 69 17 103/51 (68) 100 08/23/17 23:00 69 08/23/17 22:00 72 08/23/17 21:00 71 08/23/17 20:00 98.7 71 20 99/49 (66) 18 08/23/17 20:00 71 08/23/17 18:30 97.5 75 18 92/45 (61) 98 Nasal Cannula 3 08/23/17 18:15 75 18 112/56 (74) 98 Nasal Cannula 3 08/23/17 18:00 68 18 106/53 (70) 98 Nasal Cannula 3 08/23/17 17:45 70 16 112/56 (74) 98 Nasal Cannula 3 08/23/17 17:30 63 16 127/58 (81) 98 Nasal Cannula 3 08/23/17 17:20 97.7 63 16 118/58 (78) 93 Nasal Cannula 3 Labs: Laboratory Tests Test 08/24/17 05:14 White Blood Count 18.8 TH/MM3 (4.0-11.0) Red Blood Count 2.73 MIL/MM3 (4.50-5.90) Hemoglobin 8.2 GM/DL (13.0-17.0) Hematocrit 24.0 % (39.0-51.0) Mean Corpuscular Volume 87.7 FL (80.0-100.0) Mean Corpuscular Hemoglobin 30.0 PG (27.0-34.0) Mean Corpuscular Hemoglobin Concent 34.2 % (32.0-36.0) Red Cell Distribution Width 14.7 % (11.6-17.2) Platelet Count 161 TH/MM3 (150-450) Mean Platelet Volume 7.4 FL (7.0-11.0) CBC Comment AUTO DIFF Differential Total Cells Counted 100 Neutrophils % (Manual) 80 % (16-70) Band Neutrophils % 8 % (0-6) Lymphocytes % 6 % (9-44) Monocytes % 5 % (0-8) Eosinophils % 1 % (0-4) Neutrophils # (Manual) 16.5 TH/MM3 (1.8-7.7) Differential Comment FINAL DIFF MANUAL Atypical Lymphocytes % (0-0) Toxic Granulation 1+ (NORMAL) Platelet Estimate NORMAL (NORMAL) Platelet Morphology Comment NORMAL (NORMAL) Blood Urea Nitrogen 121 MG/DL (7-18) Creatinine 3.73 MG/DL (0.60-1.30) Random Glucose 116 MG/DL (74-106) Total Protein 6.3 GM/DL (6.4-8.2) Albumin 1.9 GM/DL (3.4-5.0) Calcium Level 7.5 MG/DL (8.5-10.1) Alkaline Phosphatase 337 U/L (45-117) Aspartate Amino Transf (AST/SGOT) 44 U/L (15-37) Alanine Aminotransferase (ALT/SGPT) 55 U/L (12-78) Total Bilirubin 0.5 MG/DL (0.2-1.0) Sodium Level 135 MEQ/L (136-145) Potassium Level 4.7 MEQ/L (3.5-5.1) Chloride Level 101 MEQ/L (98-107) Carbon Dioxide Level 19.7 MEQ/L (21.0-32.0) Anion Gap 14 MEQ/L (5-15) Estimat Glomerular Filtration Rate 16 ML/MIN (>89) Random Vancomycin Level 23.6 COMMENT B-Hydroxybutyrate 0.57 MMOL/L (0.00-0.39) Result Diagram: 08/24/17 0514 08/24/17 0514 Markell Galarza MD Aug 24, 2017 16:27
--- NOTE | 2017-08-24 16:49 | PD.POD ---
Subjective Pain score: 5 Past Med/Surg/Social History Past Medical History HEENT: REPORTS HX OF: Other HEENT history Endocrine: REPORTS HX OF: Diabetes mellitus Cardiovascular: REPORTS HX OF: Hypertension Musculoskeletal: REPORTS HX OF: Fractures (right elbow and foot) Disabilities: REPORTS HX OF: Vision deficit Past Surgical History HEENT: REPORTS HX OF: Other eye surgery (cornea transplant) Musculoskeletal: REPORTS HX OF: Other musculoskeletal srg (right foot and elbow ) Social History Smoking Status: Former Smoker Objective Vital Signs Vital Signs Date Time Temp Pulse Resp B/P (MAP) Pulse Ox O2 Delivery O2 Flow Rate FiO2 08/24/17 14:00 83 08/24/17 12:00 84 08/24/17 12:00 99.7 84 20 110/53 (72) 94 08/24/17 10:00 84 08/24/17 10:00 21 08/24/17 08:00 84 08/24/17 08:00 99.4 84 20 107/58 (74) 95 08/24/17 07:01 20 08/24/17 06:00 79 08/24/17 04:00 98.2 74 11 101/55 (70) 97 08/24/17 04:00 74 08/24/17 02:18 99 Nasal Cannula 3.00 08/24/17 02:00 69 08/24/17 00:00 69 08/24/17 00:00 98.1 69 17 103/51 (68) 100 08/23/17 23:00 69 08/23/17 22:00 72 08/23/17 21:00 71 08/23/17 20:00 98.7 71 20 99/49 (66) 18 08/23/17 20:00 71 08/23/17 18:30 97.5 75 18 92/45 (61) 98 Nasal Cannula 3 08/23/17 18:15 75 18 112/56 (74) 98 Nasal Cannula 3 08/23/17 18:00 68 18 106/53 (70) 98 Nasal Cannula 3 08/23/17 17:45 70 16 112/56 (74) 98 Nasal Cannula 3 08/23/17 17:30 63 16 127/58 (81) 98 Nasal Cannula 3 08/23/17 17:20 97.7 63 16 118/58 (78) 93 Nasal Cannula 3 Coded Allergies: succinylcholine (Verified Allergy, Unknown, 08/23/17) No Known Allergies (Unverified Adverse Reaction, Unknown, 08/23/17) Medications and IVs Administered Medications Medications (Trade) Dose Ordered Sig/Shweta Route PRN Reason Start Time Stop Time Status Last Admin Dose Admin Fluoxetine HCl (PROzac) 10 mg DAILY PO 08/24/17 09:00 08/24/17 09:09 Hydrochlorothiazide (Hydrodiuril) 25 mg DAILY PO 08/24/17 09:00 08/24/17 09:04 Pravastatin Sodium (Pravachol) 40 mg DAILY PO 08/24/17 09:00 08/24/17 09:04 Prednisolone Acetate (Pred Forte 1% Opth Susp) 1 drop QID RIGHT EYE 08/23/17 18:00 08/24/17 12:55 Sodium Chloride (NS Flush) 2 ml BID IV FLUSH 08/23/17 21:00 08/24/17 09:04 Pantoprazole Sodium (Protonix Inj) 40 mg DAILY IV PUSH 08/24/17 09:00 08/24/17 09:04 Clindamycin Phosphate 900 mg/ Sodium Chloride 106 ml @ 100 mls/hr Q8H IV 08/23/17 19:00 08/24/17 11:02 Oxycodone HCl (Roxicodone) 10 mg Q4H PRN PO PAIN SCALE 6 TO 10 08/23/17 17:15 08/24/17 06:01 Morphine Sulfate (Morphine Inj) 2 mg Q3H PRN IV PUSH BREAKTHROUGH PAIN 08/23/17 18:15 08/24/17 13:33 Sodium Bicarbonate 150 meq/Sterile Water 1,000 ml @ 150 mls/hr Q6H40M IV 08/23/17 19:00 08/24/17 15:29 Piperacillin Sod/ Tazobactam Sod 50 ml @ 100 mls/hr Q6H IV 08/23/17 18:00 08/24/17 12:54 Other Results Laboratory Tests Test 08/23/17 18:01 08/23/17 18:04 08/23/17 19:15 08/23/17 23:50 Urine Turbidity HAZY Urine Protein 30 mg/dL Urine Glucose (UA) 150 mg/dL Urine Occult Blood MOD Urine RBC 55 /hpf Urine WBC 7 /hpf Urine Bacteria OCC /hpf Urine Microalbumin/Creatinine Ratio 283 MG/G CRE White Blood Count 16.9 TH/MM3 19.0 TH/MM3 Red Blood Count 2.93 MIL/MM3 2.62 MIL/MM3 Hemoglobin 8.8 GM/DL 7.8 GM/DL Hematocrit 26.6 % 23.5 % Erythrocyte Sedimentation Rate GREATER THAN 140 mm/hr Prothrombin Time 13.2 SEC Activated Partial Thromboplast Time 43.2 SEC Blood Urea Nitrogen 132 MG/DL 120 MG/DL Creatinine 4.02 MG/DL 3.82 MG/DL Random Glucose 325 MG/DL 177 MG/DL Total Protein 6.3 GM/DL 6.0 GM/DL Albumin 1.9 GM/DL Calcium Level 7.9 MG/DL 7.4 MG/DL Alkaline Phosphatase 379 U/L Sodium Level 131 MEQ/L 133 MEQ/L Potassium Level 5.8 MEQ/L Carbon Dioxide Level 14.8 MEQ/L 17.3 MEQ/L Estimat Glomerular Filtration Rate 15 ML/MIN 16 ML/MIN Hemoglobin A1c 8.4 % C-Reactive Protein 31.80 MG/DL Cholesterol Level 58 MG/DL HDL Cholesterol 22.0 MG/DL B-Hydroxybutyrate 0.99 MMOL/L Platelet Count 141 TH/MM3 Protein Corrected Calcium 8.0 MG/DL Test 08/24/17 05:14 White Blood Count 18.8 TH/MM3 Red Blood Count 2.73 MIL/MM3 Hemoglobin 8.2 GM/DL Hematocrit 24.0 % Neutrophils % (Manual) 80 % Band Neutrophils % 8 % Lymphocytes % 6 % Neutrophils # (Manual) 16.5 TH/MM3 Toxic Granulation 1+ Blood Urea Nitrogen 121 MG/DL Creatinine 3.73 MG/DL Random Glucose 116 MG/DL Total Protein 6.3 GM/DL Albumin 1.9 GM/DL Calcium Level 7.5 MG/DL Alkaline Phosphatase 337 U/L Aspartate Amino Transf (AST/SGOT) 44 U/L Sodium Level 135 MEQ/L Carbon Dioxide Level 19.7 MEQ/L Estimat Glomerular Filtration Rate 16 ML/MIN B-Hydroxybutyrate 0.57 MMOL/L Physical Exam General appearance: acutely ill Nutritional status: overweight Orientation: alert and oriented x3 Details Left LE- no obvious skin ulcer/infection. Right LE- severe swelling. Erythema and edema up to the midcalf bandage intact , no strike through the bandage, foul odor noted, capillary fill time remains to the digits, no palpable soft tissue emphysema within the calf Assessment & Plan Diagnosis: (1) Gas gangrene of extremity ICD Codes: A48.0 - Gas gangrene Status: Acute A/P Right foot ankle leg infection, gas gangrene, infected hardware. Status post incision and drainage right foot and ankle and leg- 1-17. Multiple doctors have spoken with the patient and he is declining any further care other than comfort care. He feels he has had a good life and is refusing amputation. He further explained prior to his right lower extremity infection; he had decided DNR. I explained that if he does not have his leg removed he will certainly of sepsis. The patient voiced he understood and replied, " it is my choice". He is refusing any further surgical intervention of the extremity. He appears to be alert verbal and is able to voice reasonable understanding of his medical issues. Bandage was changed earlier today. Hospice /palliative care consult has been placed. Des Sun DPM Aug 24, 2017 16:49
--- NOTE | 2017-08-24 22:20 | EKG ---
Date Performed: 08/23/2017 Time Performed: 20:23:49 PTAGE: 71 years EKG: Sinus rhythm WITH OCCASIONAL SUPRAVENTRICULAR PREMATURE COMPLEXES BORDERLINE ECG PREVIOUS TRACING : 08/23/2017 14.47 Since previous tracing, no significant change noted DOCTOR: Sukhjinder Carias Interpretating Date/Time 08/24/2017 22:18:26
--- NOTE | 2017-08-24 22:35 | EKG ---
Date Performed: 08/23/2017 Time Performed: 14:47:13 PTAGE: 71 years EKG: Sinus rhythm WITH FIRST DEGREE AV BLOCK ABNORMAL ECG PREVIOUS TRACING : 01/16/2013 13.26 Since previous tracing, no significant change noted DOCTOR: Sukhjinder Carias Interpretating Date/Time 08/24/2017 22:34:40
== END 2017-08-24 18:55 | disposition hospice, inpatient (51) | DRG 853 ==
LOC: NEPC 09:03 → NEDA 12:04 → HIME 19:00
PROVIDERS: ADMIT Family Medicine; ATTEND Family Medicine
PROC: 0J9Q0ZZ Drainage of Right Foot Subcutaneous Tissue and Fascia, Open Approach (ICD-10-PCS; 2017-08-23)
PROC: 0JBQ0ZZ Excision of Right Foot Subcutaneous Tissue and Fascia, Open Approach (ICD-10-PCS; 2017-08-23)
PROC: 0QBJ0ZX Excision of Right Fibula, Open Approach, Diagnostic (ICD-10-PCS; principal; 2017-08-23 15:59)
DX: A41.9 Sepsis, unspecified organism (principal); A48.0 Gas gangrene; M72.6 Necrotizing fasciitis; N17.9 Acute kidney failure, unspecified; E87.2 Acidosis; E87.1 Hypo-osmolality and hyponatremia; L97.419 Non-pressure chronic ulcer of right heel and midfoot with unspecified severity; M84.474A Pathological fracture, right foot, initial encounter for fracture; T84.629A Infection and inflammatory reaction due to internal fixation device of unspecified bone of leg, initial encounter; E11.22 Type 2 diabetes mellitus with diabetic chronic kidney disease; E11.65 Type 2 diabetes mellitus with hyperglycemia; Z51.5 Encounter for palliative care; N18.9 Chronic kidney disease, unspecified; I12.9 Hypertensive chronic kidney disease with stage 1 through stage 4 chronic kidney disease, or unspecified chronic kidney disease; E78.5 Hyperlipidemia, unspecified; Z79.899 Other long term (current) drug therapy; F32.9 Major depressive disorder, single episode, unspecified; F41.9 Anxiety disorder, unspecified; E11.621 Type 2 diabetes mellitus with foot ulcer; E11.40 Type 2 diabetes mellitus with diabetic neuropathy, unspecified; L97.519 Non-pressure chronic ulcer of other part of right foot with unspecified severity; E11.628 Type 2 diabetes mellitus with other skin complications; G89.29 Other chronic pain; R65.20 Severe sepsis without septic shock; E11.622 Type 2 diabetes mellitus with other skin ulcer; I25.10 Atherosclerotic heart disease of native coronary artery without angina pectoris; J44.9 Chronic obstructive pulmonary disease, unspecified; D64.9 Anemia, unspecified; Z94.7 Corneal transplant status; Z66 Do not resuscitate; Z53.29 Procedure and treatment not carried out because of patient's decision for other reasons; Z79.82 Long term (current) use of aspirin; Z87.891 Personal history of nicotine dependence; Y83.1 Surgical operation with implant of artificial internal device as the cause of abnormal reaction of the patient, or of later complication, without mention of misadventure at the time of the procedure
CPT/HCPCS: 73620; 73700; 76775; 80048; 80053; 80061; 80202; 81001; 82010; 82043; 82948; 83036; 83605; 83735; 84100; 84155; 84443; 85007; 85025; 85027; 85610; 85652; 85730; 86140; 87015; 87040; 87070; 87077; 87086; 87102; 87116; 87186; 87205; 87206; 87641; 88304; 88305; 88307; 88311; 93005; 96365; 96375; C9113; J0131; J1817; J2250; J2270; J2370; J2405; J2543; J3010; J3370; J7030; J7040; J7050; J7120